=== PATIENT | male | born 2000 | race Caucasian/White ===

== ENCOUNTER 2020-01-19 16:07 | Emergency (ER) | payer SELFPAY ==
[2020-01-19 16:32] VITALS: BP 127/79; PULSE 77; RESP 18; TEMP 36.5; O2SAT 99; BMI 20.6
--- NOTE | 2020-01-19 17:21 | W.ED.SKABFB ---
HPI - Skin/Abscess/Foreign Bdy General: Chief complaint: Skin/Abscess/Foreign Body Stated complaint: lump under armpit Time Seen by Provider: 01/19/20 17:17 Source: patient Mode of arrival: ambulatory Limitations: no limitations History of Present Illness: HPI narrative: 19-year-old male whose had a lump to his right armpit over the last 2 days. He states that he has had worsening pain along with tenderness to the area. He states he is became more red as well rates his pain a 7 out of 10 currently. He denies any other injuries. Associated symptoms: Deny chills, fever(s), nausea or vomiting Review of Systems Const: Denies: fever(s), chills, body aches or change in appetite Eyes: Denies: blurry vision or eye discomfort ENMT: Denies: throat pain or dental pain Card: Denies: chest pain Resp: Denies: dyspnea GI: Denies: abdominal pain, nausea, vomiting or diarrhea : Denies: dysuria Musc: Denies: neck pain or back pain Skin/Breast: Reports: erythema Neuro: Denies: headache(s) Psych: Denies: depression Fish/Lymph: Denies: easy bruising All/Imm: Denies: urticaria Physical Exam Const: COMMON NORMALS: no acute distress, patient oriented x3 and healthy appearing HENMT: COMMON NORMALS: normocephalic and atraumatic HEAD & SCALP: normocephalic and atraumatic Eye: COMMON NORMALS: Equal, round and reactive pupils present and EOMs intact bilaterally PUPIL: Yes Equal, round and reactive pupils present Neck/C-Spine: COMMON NORMALS: full ROM and supple Chest: COMMONS NORMALS: normal inspection of the chest and normal palpation of entire chest wall Resp: COMMON NORMALS: normal respiratory effort, No retractions, No use of accessory muscles and clear to auscultation bilaterally AUSCULTATION: clear to auscultation bilaterally Cardio: COMMON NORMALS: regular rate, regular rhythm and No murmurs present (Cardio) RATE: regular rate RHYTHM: regular rhythm GI: COMMON NORMALS: Normal to inspection, nondistended, normoactive bowel sounds present, Soft to palpation, non-tender and no masses PALPATION: Yes Soft to palpation Extremity: COMMON NORMALS: normal to inspection and full ROM NARRATIVE EXTREMITY EXAM: 3cm abscess to right axilla Neuro: COMMON NORMALS: patient oriented x3, moves all extremities and no focal motor deficits Psych: COMMON NORMALS: mental status grossly normal, Normal thought process present and cooperative THOUGHT PROCESS: Normal thought process present Skin: COMMON NORMALS: no rashes or lesions noted and no wounds GENERAL SKIN EXAM: no rashes or lesions noted Procedures Abscess I/D Site: upper extremity Side (if applicable): right Local Anesthetic: lidocaine 1% Amount of anesthesia used (mL): 10 Technique: incised with #11 blade Packing used?: none Complications: pain Course Vital Signs: Vital signs: Vital Signs Temperature 97.7 F 01/19/20 16:32 Pulse Rate 65 01/19/20 17:23 Respiratory Rate 18 01/19/20 17:23 Blood Pressure 119/67 01/19/20 17:23 Pulse Oximetry 99 01/19/20 17:23 MDM - Skin/Abscess/Foreign Bdy MDM Narrative: Medical decision making narrative: Patient presents with an sabecous cyst to his right armpit. Abscess was incised and drained patient is to take Bactrim. Patient is stable for discharge is return if worsening. Discharge Plan Discharge Patient Disposition: Home Clinical Impression: Sebaceous cyst Condition: Stable Prescriptions: New Bactrim DS 800-160 mg tablet 1 tab PO BID 10 Days Qty: 20 RF: 0 Bactrim DS 800-160 mg tablet 1 tab PO BID 10 Days Qty: 20 RF: 0 [place] 5-325 mg tablet 1 tab PO Q6H PRN (Reason: pain) Qty: 14 RF: 0 Discharge Orders: Discharge Order (Routine); Ordered 01/19/20 Ordered By: Nathalie Reed Discharge Diet: Advance as tolerated Discharge Activity: Resume usual activity Patient Instructions: Abscess (ED) Coding Level of Care Code ED Burr Grinder for [employer] Fwd Exam Comprehensive
[2020-01-19 17:23] VITALS: BP 119/67; PULSE 65; RESP 18; O2SAT 99
[2020-01-19 17:52] VITALS: BP 118/66; PULSE 67; RESP 18; O2SAT 99
[2020-01-19 18:04] VITALS: BP 118/72; PULSE 76; RESP 18; TEMP 37; O2SAT 97
--- NOTE | 2020-01-22 09:19 | DCPLANNER ---
gardening manager had message to schedule a follow up appointment for patient with dermatology. Zohaib saldana called the dermatology clinic, spoke with Jeromy. gardening manager gave clinic patients information, a follow up appointment was scheduled for Tuesday, February 18, 2020 at 3:[address] Cerrato. Clinic will call patient with appointment information.
--- NOTE | 2020-02-24 08:29 | DCPLANNER ---
Patient had follow up with dermatology - patient did attend follow up appointment.
== END 2020-01-19 18:06 | disposition home or self-care (01) ==
PROVIDERS: Emergency Provider Emergency Medicine
DX: L72.3 Sebaceous cyst (principal)
CPT/HCPCS: 10060; 12345; 99283

== ENCOUNTER → 2020-01-27 12:52 | Outpatient (BNVA) | payer SELFPAY | PROVIDERS: PCP Emergency Medicine; Referring Provider Emergency Medicine; Visit Provider Dermatology | DX: L72.3 Sebaceous cyst (principal); F17.210 Nicotine dependence, cigarettes, uncomplicated | CPT/HCPCS: 11900; 99203; J3301 ==

== ENCOUNTER → 2020-02-10 11:18 | Outpatient (BNVA) | payer SELFPAY | PROVIDERS: PCP Emergency Medicine; Visit Provider Dermatology | DX: L72.3 Sebaceous cyst (principal); L70.8 Other acne; L81.4 Other melanin hyperpigmentation; L81.2 Freckles; S90.869A Insect bite (nonvenomous), unspecified foot, initial encounter; X58.XXXA Exposure to other specified factors, initial encounter; L70.0 Acne vulgaris | CPT/HCPCS: 99213; 99214 ==

== ENCOUNTER 2023-02-22 19:34 | Emergency (ER) | payer MEDICAID, SELFPAY ==
[2023-02-22 20:02] VITALS: BP 150/78; PULSE 90; RESP 16; TEMP 36.6; O2SAT 100; BMI 21.2
--- NOTE | 2023-02-22 20:52 | W.ED.FALL ---
HPI - Fall General: Chief Complaint: Fall Stated Complaint: fell, back pain, sob Time Seen by Provider: 02/22/23 20:23 History of Present Illness: 22-year-old male patient comes in today for injury to the mid back. Patient reports he was chasing his one of his children through the house when he slipped and fell landing on his mid back. Patient denies any loss of consciousness. Patient reports some difficulty breathing taking a deep breath due to the pain between his shoulder blades. Patient appears nontoxic. Patient appears in moderate pain. No obvious deformity is noted. Review of Systems General: Reports: 10 or more systems reviewed and unremarkable except in HPI and below Musc: Reports: back pain PFS ED PFSH: Social History Smoking and tobacco status: current every day smoker cigarettes Alcohol intake: current Alcohol intake frequency: few times a month Physical Exam Const: COMMON NORMALS: alert HENMT: COMMON NORMALS: normocephalic HEAD & SCALP: normocephalic Neck/C-Spine: COMMON NORMALS: full ROM CERVICAL SPINE: No Cervical spine tenderness and No Paracervical muscle tenderness Chest: COMMONS NORMALS: normal palpation of entire chest wall Resp: COMMON NORMALS: normal respiratory effort and clear to auscultation bilaterally AUSCULTATION: clear to auscultation bilaterally Cardio: COMMON NORMALS: regular rate and regular rhythm RATE: regular rate RHYTHM: regular rhythm GI: COMMON NORMALS: Soft to palpation and non-tender PALPATION: Yes Soft to palpation Back/Pelvis: THORACIC SPINE/UPPER BACK: Yes normal to inspection, Yes thoracic spinal tenderness and Yes paraspinal muscle tenderness LUMBAR SPINE/LOWER BACK: No lumbar spinal tenderness and No paraspinal muscle tenderness Extremity: COMMON NORMALS: full ROM Neuro: SENSORIUM/ORIENTATION: Yes alert Skin: COMMON NORMALS: turgor normal GENERAL SKIN EXAM: turgor normal Course Vital Signs: Vital signs: Vital Signs Temperature 97.8 F 02/22/23 20:02 Pulse Rate 90 02/22/23 20:02 Respiratory Rate 16 02/22/23 20:02 Blood Pressure 150/78 02/22/23 20:02 Pulse Oximetry 100 02/22/23 20:02 Oxygen Delivery Me thod Room Air 02/22/23 20:02 MDM - Fall Medical Decision Making Patient comes in for evaluation of pain to the mid back after slipping and falling onto the ground. On exam patient appears nontoxic. Patient moves all extremities well. Patient has some tenderness of the mid thoracic spine. Abdomen is soft and nontender. No edema is noted in the extremities. Differential diagnosis includes pneumothorax, thoracic fracture, rib fracture, costochondritis, contusion. X-rays of the thoracic spine and chest were unremarkable. Reviewed exam with patient with recommendations for treatment for pain with medication and ice or heat. Patient reported understanding of care plan and need for follow-up or return to ER. Patient was stable and discharged home. XR interpretation done by ED provider, pending radiology final review Discharge Plan Discharge Patient Disposition: Home Clinical Impression: Acute back pain Qualifiers: Back pain location: thoracic back pain Back pain laterality: midline Qualified Code(s): M54.6 - Pain in thoracic spine Condition: Stable Prescriptions: New hydrocodone-acetaminophen 5-325 mg tablet 1 tab PO Q6H PRN (Reason: pain) Qty: 10 0RF celecoxib 200 mg capsule 200 mg PO BID PRN (Reason: pain) Qty: 20 0RF No Action triamcinolone acetonide 0.1 % ointment 1 applic TOPICAL BID Qty: 80 0RF Rx Instructions: Apply to affected areas on the feet and hands twice daily no more than 2 weeks/month. adapalene 0.3 % gel 1 applic TOPICAL DAILY Qty: 45 3RF Rx Instructions: Apply pea-sized amount to clean, dry face nightly clindamycin-benzoyl peroxide 1.2 %(1 % base) -5 % gel 1 applic TOPICAL DAILY Qty: 45 2RF Rx Instructions: Apply thin film to face chest and back every morning. May bleach clothes. [place] 5-325 mg tablet 1 tab PO Q6H PRN (Reason: pain) Qty: 14 0RF Discharge Orders: Discharge ED (Routine); Ordered 02/22/23 Ordered By: Branden Hall Discharge Diet: Usual diet Discharge Activity: Increase activity as tolerated Patient Instructions: Back Pain (ED), Opioid Safety, Pain Management Activity Restrictions/Additional Instructions: Activity as tolerated. Use ice or heat to help with pain. Use acetaminophen and celecoxib routinely to control pain. Use hydrocodone for severe pain. Follow-up with primary care in 1 week for recheck. Return to ER for new concerns. Stand Alone Forms: Work/School Release Coding Level of Care Code ED Chief Executive for Janie Mendoza
--- NOTE | 2023-02-22 20:55 | XRR_ITS ---
PROCEDURE INFORMATION: Exam: XR Thoracic Spine Exam date and time: 02/22/2023 9:07 PM Age: 22 years old Clinical indication: Pain in thoracic spine; Additional info: Fall injury, pain between shoulders TECHNIQUE: Imaging protocol: Radiologic exam of the thoracic spine. Views: 3 views. COMPARISON: CR XR chest 1V portable [id number] 02/22/2023 9:06 PM FINDINGS: Bones/joints: Normal. No acute fracture. Normal alignment. Soft tissues: Unremarkable. XR/XR thoracic spine 3V* [id number] IMPRESSION: No acute findings.
--- NOTE | 2023-02-22 20:55 | XRR_ITS ---
PROCEDURE INFORMATION: Exam: XR Chest Exam date and time: 02/22/2023 9:06 PM Age: 22 years old Clinical indication: Dyspnea; Additional info: Fall injury, dyspnea TECHNIQUE: Imaging protocol: Radiologic exam of the chest. Views: 1 view. COMPARISON: No relevant prior studies available. FINDINGS: Lungs: Unremarkable. No consolidation. Pleural spaces: Unremarkable. No pleural effusion. No pneumothorax. Heart/Mediastinum: Unremarkable. No cardiomegaly. Bones/joints: Unremarkable. XR/XR chest 1V portable [id number] IMPRESSION: No acute findings.
[2023-02-22] MEDS: HYDROcodone-acetaminophen 7.5-325 mg Tablet 1 TAB PO (21:14)
[2023-02-22 21:51] VITALS: BP 141/84; PULSE 78; RESP 18; O2SAT 98
== END 2023-02-22 21:52 | disposition home or self-care (01) ==
PROVIDERS: Emergency Provider Nurse Practitioner Family
DX: M54.6 Pain in thoracic spine (principal); F17.210 Nicotine dependence, cigarettes, uncomplicated
CPT/HCPCS: 71045; 72072; 99284; J1885

== ENCOUNTER 2023-03-08 07:21 | Emergency (ER) | payer MEDICAID, SELFPAY ==
[2023-03-08 07:25] VITALS: BP 149/82; PULSE 85; RESP 18; TEMP 36.4; O2SAT 100
--- NOTE | 2023-03-08 07:29 | ED_ITS ---
HPI - Dental/Oral General: Chief complaint: Dental/Oral Stated complaint: left side jaw pain Time Seen by Provider: 03/08/23 07:23 Source: patient Mode of arrival: ambulatory Limitations: no limitations History of Present Illness: 22-year-old male states been having left lower tooth and jaw pain over the last 3 days. States got worse throughout the night last night states pain is currently 5 out of 10 denies any difficulty swallowing states it seems to radiate into his left ear denies any fevers Associated symptoms: Denies fever(s) Review of Systems Const: Denies: fever(s), chills, body aches or change in appetite ENMT: Reports: dental pain; Denies: throat pain Card: Denies: chest pain Resp: Denies: dyspnea GI: Denies: abdominal pain, nausea, vomiting or diarrhea : Denies: dysuria Musc: Denies: neck pain or back pain Skin/Breast: Denies: rash Neuro: Denies: headache(s) PFSH ED PFSH: Social History Smoking and tobacco status: current every day smoker cigarettes Alcohol intake: current Alcohol intake frequency: few times a month Physical Exam Const: COMMON NORMALS: no acute distress and patient oriented x3 HENMT: COMMON NORMALS: normocephalic and atraumatic HEAD & SCALP: normocephalic and atraumatic TYMPANIC MEMBRANE: TM normal on the left OTHER: Poor dentition with dental caries to left lower molar tenderness to touch no abscess no trismus Eye: COMMON NORMALS: conjunctivae normal CONJUNCTIVA: Yes conjunctivae normal Neck/C-Spine: COMMON NORMALS: full ROM and no lymphadenopathy Chest: COMMONS NORMALS: normal inspection of the chest Resp: COMMON NORMALS: normal respiratory effort Extremity: COMMON NORMALS: normal to inspection Neuro: COMMON NORMALS: patient oriented x3 Psych: COMMON NORMALS: mental status grossly normal Skin: COMMON NORMALS: no rashes or lesions noted GENERAL SKIN EXAM: no rashes or lesions noted Course Vital Signs: Vital signs: Vital Signs Temperature 97.5 F L 03/08/23 07:25 Pulse Rate 85 03/08/23 07:25 Respiratory Rate 18 03/08/23 07:25 Blood Pressure 149/82 03/08/23 07:25 Pulse Oximetry 100 03/08/23 07:[address] thod Room Air 03/08/23 07:25 MDM - Dental/Oral Medical Decision Making Patient presents here with dental pain we will start him on antibiotics he needs to follow-up with a dentist he has no abscess or trismus return if worsening Medical Records I reviewed the patient's medical records. No radiology studies performed this visit Discharge Plan Discharge Patient Disposition: Home Clinical Impression: Toothache Condition: Stable Prescriptions: New cephalexin 500 mg capsule 500 mg PO TID 7 Days Qty: 21 0RF Naprosyn 500 mg tablet 500 mg PO BID PRN (Reason: pain) Qty: 20 0RF No Action triamcinolone acetonide 0.1 % ointment 1 applic TOPICAL BID Qty: 80 0RF Rx Instructions: Apply to affected areas on the feet and hands twice daily no more than 2 weeks/month. adapalene 0.3 % gel 1 applic TOPICAL DAILY Qty: 45 3RF Rx Instructions: Apply pea-sized amount to clean, dry face nightly clindamycin-benzoyl peroxide 1.2 %(1 % base) -5 % gel 1 applic TOPICAL DAILY Qty: 45 2RF Rx Instructions: Apply thin film to face chest and back every morning. May bleach clothes. [place] 5-325 mg tablet 1 tab PO Q6H PRN (Reason: pain) Qty: 14 0RF hydrocodone-acetaminophen 5-325 mg tablet 1 tab PO Q6H PRN (Reason: pain) Qty: 10 0RF celecoxib 200 mg capsule 200 mg PO BID PRN (Reason: pain) Qty: 20 0RF Discharge Orders: Discharge ED (Routine); Ordered 03/08/23 Ordered By: Nathalie Reed Discharge Diet: Advance as tolerated Discharge Activity: Resume usual activity Patient Instructions: Toothache (ED) Coding Level of Care Code ED Branch Banker for Janie Mendoza
[2023-03-08] MEDS: HYDROcodone-acetaminophen 5-325 mg Tablet 1 TAB PO (07:41)
== END 2023-03-08 07:45 | disposition home or self-care (01) ==
PROVIDERS: Emergency Provider Emergency Medicine
DX: K08.89 Other specified disorders of teeth and supporting structures (principal); F17.210 Nicotine dependence, cigarettes, uncomplicated
CPT/HCPCS: 99283

== ENCOUNTER 2023-04-07 05:38 | Emergency (ER) | payer MEDICAID, SELFPAY ==
[2023-04-07 05:40] VITALS: BP 151/90; PULSE 77; RESP 16; TEMP 36.6; O2SAT 98
--- NOTE | 2023-04-07 05:50 | ED_ITS ---
HPI - Abdominal Pain General: Chief Complaint: Abdominal Pain Stated Complaint: n/v Time Seen by Provider: 04/07/23 05:45 Source: patient Mode of arrival: ambulatory History of Present Illness: 22-year-old male presents emergency room planing nausea vomiting for the last 2 days feels like he cannot keep anything down. Diffuse abdominal pain denies hematochezia or melena, no dysuria urgency or frequency. He has had a history of kidney stones he says it does not feel like he has felt with his previous stones. MD elicited complaint: abdominal pain Pertinent past history: kidney stones Onset (ago): day(s) (2) Pain Consistency: constant Location: Diffuse Quality: cramping Exacerbating factors: nothing Relieving factors: nothing Associated Symptoms: Reports GI cramping; Denies anorexia, belching, bloating, change in bowel habits, change in stool character, chills, coffee ground emesis, constipation, diarrhea, dyspepsia, dysuria, excessive flatus, fever(s), heartburn, hematochezia, hematuria, hematemesis, fecal incontinence, loose stools, melena, nausea, poor appetite, syncope and vomiting Review of Systems Const: Denies: fever(s) or chills Card: Denies: chest pain or syncope Resp: Denies: dyspnea GI: Reports: GI cramping; Denies: abdominal pain, nausea, vomiting, hematemesis, coffee ground emesis, heartburn, diarrhea, constipation, bloating, belching, excessive flatus, fecal incontinence, change in bowel habits, change in stool character, hematochezia or melena : Denies: dysuria, urinary frequency, urinary urgency or hematuria Musc: Denies: neck pain or back pain Skin/Breast: Denies: rash PFSH ED PFSH: Social History Smoking and tobacco/nicotine status: current every day tobacco/nicotine user mario anthony Alcohol intake: current Alcohol intake frequency: few times a month Physical Exam Const: GENERAL APPEARANCE: cooperative and comfortable ORIEN TATION/CONSCIOUSNESS: Yes awake, Yes oriented to person, Yes oriented to place and Yes oriented to time HENMT: COMMON NORMALS: normocephalic, atraumatic and hearing grossly normal bilaterally HEAD & SCALP: normocephalic and atraumatic Resp: COMMON NORMALS: normal respiratory effort, No retractions, No use of accessory muscles and clear to auscultation bilaterally AUSCULTATION: clear to auscultation bilaterally Cardio: COMMON NORMALS: regular rate, regular rhythm and No murmurs present (Cardio) RATE: regular rate RHYTHM: regular rhythm GI: COMMON NORMALS: No hepatosplenomegaly present AUSCULTATION: Yes normoactive bowel sounds PALPATION: Yes Tenderness to palpation present (GI) (Diffuse nonspecific), No Guarding due to palpation present (GI) and Yes No hepatosplenomegaly present Extremity: COMMON NORMALS: normal to inspection, capillary refill normal, no clubbing, cyanosis or edema, no calf tenderness and no pedal edema Neuro: SENSORIUM/ORIENTATION: Yes oriented to person, Yes oriented to place and Yes oriented to time Skin: COMMON NORMALS: no rashes or lesions noted GENERAL SKIN EXAM: no rashes or lesions noted Course Vital Signs: Vital signs: Vital Signs Temperature 97.8 F 04/07/23 05:40 Pulse Rate 77 04/07/23 05:40 Respiratory Rate 16 04/07/23 05:40 Blood Pressure 151/90 04/07/23 05:40 Pulse Oximetry 98 04/07/23 05:40 MDM - Abdominal Pain Medical Decision Making Labs and imaging reviewed patient does have some leukocytosis CT does not show any acute abnormalities reviewed and discussed with Dr. Wilson. Nausea vomiting has improved he still some abdominal cramping. He has received 2 L of fluid. I think this is due to his cannabinoid use. We will discharge patient home olanzapine and Ativan to use as needed. Clear liquid diet for 24 to 48 hours and advance as tolerated. Medical Records I reviewed the patient's medical records. Lab Data I reviewed the patient's lab results. 04/07/23 06:00 04/07/23 06:00 Labs/Radiology: Laboratory Results WBC 19.52 10^3/uL (3.29-11.43) H 04/07/23 06:00 RBC 5.18 10^6/uL (3.85-5.65) 04/07/23 06:00 Hgb 16.40 g/dL (11.27-16.99) 04/07/23 06:00 Hct 47.7 % (37-53) 04/07/23 06:00 MCV 92.1 fl (82-101) 04/07/23 06:00 MCH 31.7 pg (27-33) 04/07/23 06:00 MCHC 34.4 g/dL (30-55) 04/07/23 06:00 RDW 12.3 % (12.1-15.1) 04/07/23 06:00 Plt Count 201 10^3/cmm (157-399) 04/07/23 06:00 MPV 11.2 fL (7.4-10.4) H 04/07/23 06:00 Neut % (Auto) 86.7 % 04/07/23 06:00 Lymph % (Auto) 6.4 % 04/07/23 06:00 [place] % (Auto) 5.6 % 04/07/23 06:00 Eos % (Auto) 0.6 % 04/07/23 06:00 Baso % (Auto) 0.3 % 04/07/23 06:00 Neut # (Auto) 16.96 10^3/uL (1.8-7.7) H 04/07/23 06:00 Lymph # (Auto) 1.2 10^3/uL (0.8-4.8) 04/07/23 06:00 [place] # (Auto) 1.1 10^3/uL (0.2-0.9) H 04/07/23 06:00 Eos # (Auto) 0.1 10^3/uL (0.0-0.8) 04/07/23 06:00 Baso # (Auto) 0.1 10^3/uL (0.0-0.1) 04/07/23 06:00 Nucleated RBC % (auto) 0 % 04/07/23 06:00 Nucleated RBCs # 0.0 /100WBC 04/07/23 06:00 Sodium 140 mmol/L (136-145) 04/07/23 06:00 Potassium 3.8 mmol/L (3.5-5.1) 04/07/23 06:00 Chloride 103 mmol/L (98-107) 04/07/23 06:00 Carbon Dioxide 25 mmol/L (22-29) 04/07/23 06:00 Anion Gap 15.8 (5-19) 04/07/23 06:00 BUN 11 mg/dL (6-20) 04/07/23 06:00 Creatinine 0.9 mg/dL (0.7-1.2) 04/07/23 06:00 GFR Calculation 103.7 mL/min (90-130) 04/07/23 06:00 Glucose 111 mg/dL (65-115) 04/07/23 06:00 Calculated Osmolality 290 mOsm/kg (285-295) 04/07/23 06:00 Calcium 9.7 mg/dL (8.5-10.5) 04/07/23 06:00 Total Bilirubin 0.7 mg/dL (0.15-1.2) 04/07/23 06:00 AST 20 U/L (0-40) 04/07/23 06:00 ALT 19 U/L (0-41) 04/07/23 06:00 Alkaline Phosphatase 84 U/L (40-130) 04/07/23 06:00 Total Protein 7.7 g/dL (6.6-8.7) 04/07/23 06:00 Albumin 4.7 g/dL (3.5-5.2) 04/07/23 06:00 Globulin 3.0 g/dL (1.3-4.6) 04/07/23 06:00 Lipase 29 U/L (13-60) 04/07/23 06:00 Urine Color Yellow (Yellow) 04/07/23 06:13 Urine Appearance Sl hazy (CLEAR) A 04/07/23 06:13 Urine pH 6.5 (5-7) 04/07/23 06:13 Ur Specific [place] 1.020 (1.005-1.030) 04/07/23 06:13 Urine Protein Neg (Negative) 04/07/23 06:13 Urine Glucose (UA) Norm (Normal) 04/07/23 06:13 Urine Ketones Negative (Negative) 04/07/23 06:13 Urine Blood Neg (Negative) 04/07/23 06:13 Urine Nitrate Negative (Negative) 04/07/23 06:13 Urine Bilirubin Neg (Negative) 04/07/23 06:13 Urine Urobilinogen Norm mg/dL (Negative) 04/07/23 06:13 Ur Leukocyte Esterase Negative (Negative) 04/07/23 06:13 Urine RBC None /hpf (0-2) 04/07/23 06:13 Urine WBC None /hpf (0-5) 04/07/23 06:13 Ur Squamous Epith Cells None /hpf (0-5) 04/07/23 06:13 Amorphous Sediment 2+ /hpf 04/07/23 06:13 Urine Bacteria Trace /hpf (NONE) 04/07/23 06:13 Urine Mucus 2+ /hpf 04/07/23 06:13 All radiology interpretation(s) finalized by discharge Discharge Plan Discharge Patient Disposition: Home Clinical Impression: Cannabinoid hyperemesis syndrome Condition: Stable Prescriptions: New olanzapine 10 mg tablet,disintegrating 10 mg PO Q8H PRN (Reason: nausea and vomiting) Qty: 15 0RF Ativan 2 mg tablet 2 mg buccal Q6H PRN (Reason: nausea and vomiting) Qty: 15 0RF Discharge Orders: Discharge ED (Routine); Ordered 04/07/23 Ordered By: Puneet Reyes Discharge Diet: Clear Liquid Discharge Activity: Increase activity as tolerated Patient Instructions: Clear Liquid Diet (ED), Opioid Safety, Pain Management Activity Restrictions/Additional Instructions: Thank you for choosing [facility] for your healthcare needs today. Please realize this is an emergency room and that we are providing you with a medical screening exam and this may not be complete and all inclusive of all the testing and or work up that you may need to determine your ailment or severity of your illness. It is very important that you follow up as instructed or that you return to the Emergency Department should you have concerns or if your condition changes or worsens in any way. Coding Level of Care Code ED Claims Account Manager for Janie Mendoza
[2023-04-07 06:07] LABS: Basophils # 0.1 10^3/uL (0.0-0.1); Basophils % 0.3 %; Eosinophils # 0.1 10^3/uL (0.0-0.8); Eosinophils % 0.6 %; Hematocrit 47.7 % (37-53); Lymphocytes # 1.2 10^3/uL (0.8-4.8); Lymphocytes % 6.4 %; Mean Corpuscular HGB Conc 34.4 g/dL (30-55); Mean Corpuscular Hemoglobin 31.7 pg (27-33); Mean Corpuscular Volume 92.1 fl (82-101); Mean Platelet Volume 11.2 fL (7.4-10.4); Monocytes # 1.1 10^3/uL (0.2-0.9); Monocytes % 5.6 %; Neutrophils # 16.96 10^3/uL (1.8-7.7); Neutrophils % 86.7 %; Nucleated Red Blood Cells % 0 %; Platelet Count 201 10^3/cmm (157-399); Red Blood Count 5.18 10^6/uL (3.85-5.65); Red Cell Distribution Width 12.3 % (12.1-15.1); White Blood Count 19.52 10^3/uL (3.29-11.43)
[2023-04-07] MEDS: promethazine 25 mg/mL SDV 1 mL IM (06:09)
[2023-04-07] MEDS: sodium chloride 0.9% 1,000 ML 999 ML IV ×2 (06:09→06:34)
[2023-04-07 06:22] LABS: Alanine Aminotransferase 19 U/L (0-41); Albumin Level 4.7 g/dL (3.5-5.2); Alkaline Phosphatase 84 U/L (40-130); Anion Gap 15.8 (5-19); Aspartate Amino Transferase 20 U/L (0-40); Blood Urea Nitrogen 11 mg/dL (6-20); Calcium 9.7 mg/dL (8.5-10.5); Carbon Dioxide 25 mmol/L (22-29); Chloride 103 mmol/L (98-107); Creatinine Clr Calc Pharmacy 143.5042; Glomerular Filtration Rate 103.7 mL/min (90-130); Glucose 111 mg/dL (65-115); Lipase 29 U/L (13-60); Osmolality Calculated 290 mOsm/kg (285-295); Potassium 3.8 mmol/L (3.5-5.1); Sodium 140 mmol/L (136-145); Total Bilirubin 0.7 mg/dL (0.15-1.2); Total Protein 7.7 g/dL (6.6-8.7)
[2023-04-07 06:23] LABS: Slide Review Slide Review Perform
[2023-04-07 06:26] LABS: Urine Appearance SL Hazy (CLEAR); Urine Color Yellow (Yellow); pH Urine 6.5 (5-7)
[2023-04-07 06:28] LABS: Bilirubin Urine Neg (Negative); Blood Urine Neg (Negative); Glucose Urine UA Norm (Normal); Ketones Urine Negative (Negative); Leukocyte Esterase Urine Negative (Negative); Nitrate Urine Negative (Negative); Protein Urine Neg (Negative); Urobilinogen Urine Norm (Negative)
[2023-04-07 06:29] LABS: Add Urine Microscopic? YES
[2023-04-07 06:30] LABS: Add Urine Culture? No; Amorphous Sediment Urine 2+ /hpf; Bacteria Urine TRACE /hpf; Mucus Urine 2+ /hpf
--- NOTE | 2023-04-07 06:37 | CT_ITS ---
WS: [id number] CT ABDOMEN AND PELVIS WITH CONTRAST HISTORY: abd pain TECHNIQUE: Imaging performed of the abdomen and pelvis with IV contrast. Single phase imaging of the abdomen. Coronal and sagittal reformats are submitted. All CT scans at [facility] use at [address] one of these dose optimization techniques: automated exposure control; mA and/or kV adjustment per patient size (includes targeted exams where dose is matched to clinical indication); or iterative re construction. IV CONTRAST: Omnipaque 350; 100 mL IV. Oral contrast: No DLP: 441.53 mGy.cm COMPARISON: None available. Lower thorax: Lung bases are clear. Heart is normal size. No hiatal hernia. Liver/biliary system: Normal size with no intrahepatic dilatation. Gallbladder: Normal. No gallstones or wall thickening. No pericholecystic fluid. Pancreas: Normal size pancreas and pancreatic duct. No adjacent inflammation. Spleen: Normal size spleen. No mass or infarct. Adrenal glands: Normal. Right kidney: Normal. Left kidney: Normal. Aorta: Normal. Lymphadenopathy: None. Free fluid: None. GI tract: The appendix is normal. Diameter is 5 mm. There is still air within the appendiceal lumen. No significant adjacent inflammation. There may be very slight increased fluid in the small bowel. No ischemic changes or obstruction. Abdominal wall: Unremarkable abdominal wall. No hernia. Pelvis: No free fluid or adenopathy within the pelvis. Bones: Unremarkable. IMPRESSION: 1. Normal appendix. At this time there is no evidence for appendicitis. 2. Very slight increased amount of fluid in the small bowel may be from mild gastroenteritis. No obs tructive pattern. 3. No renal obstruction or calcification. Notified Puneet Reyes DO at 04/07/2023 7:38 AM.
[2023-04-07 08:42] VITALS: PULSE 79; O2SAT 97
[2023-04-07] MEDS: morphine 4 mg/mL SDV 1 mL IVP (08:42)
== END 2023-04-07 08:43 | disposition home or self-care (01) ==
PROVIDERS: Emergency Provider Family Medicine
DX: R11.2 Nausea with vomiting, unspecified (principal); F12.90 Cannabis use, unspecified, uncomplicated; F17.210 Nicotine dependence, cigarettes, uncomplicated
CPT/HCPCS: 74177; 80053; 81001; 83690; 85025; 96372; 96374; 99285; J2270; J2550; J7030; Q9967

== ENCOUNTER 2023-05-25 23:49 | Emergency (ER) | payer MEDICAID, SELFPAY ==
[2023-05-25 23:54] VITALS: BP 128/83; PULSE 104; RESP 20; TEMP 36.5; O2SAT 99; BMI 21.8
[2023-05-26 00:50] VITALS: RESP 18
[2023-05-26] MEDS: haloperidol inj 5 mg/mL INJ 1 mL 2 MG IM (00:50)
[2023-05-26] MEDS: morphine 4 mg/mL SDV 1 mL IVP (00:50)
[2023-05-26] MEDS: metoclopramide 5 mg/mL SDV 2 mL 10 MG IVP (00:50)
[2023-05-26] MEDS: sodium chloride 0.9% 1,000 ML 999 ML IV (00:50)
[2023-05-26 00:52] LABS: Basophils # 0.1 10^3/uL (0.0-0.1); Basophils % 0.5 %; Eosinophils # 0.1 10^3/uL (0.0-0.8); Eosinophils % 0.5 %; Hematocrit 49.9 % (37-53); Lymphocytes # 2.2 10^3/uL (0.8-4.8); Lymphocytes % 17.3 %; Mean Corpuscular HGB Conc 34.5 g/dL (30-55); Mean Corpuscular Hemoglobin 31.8 pg (27-33); Mean Corpuscular Volume 92.2 fl (82-101); Mean Platelet Volume 12.5 fL (7.4-10.4); Monocytes % 7.9 %; Neutrophils # 9.15 10^3/uL (1.8-7.7); Neutrophils % 73.6 %; Nucleated Red Blood Cells % 0 %; Platelet Count 193 10^3/cmm (157-399); Red Blood Count 5.41 10^6/uL (3.85-5.65); Red Cell Distribution Width 12.7 % (12.1-15.1); White Blood Count 12.43 10^3/uL (3.29-11.43)
[2023-05-26 01:00] VITALS: BP 139/100; PULSE 106; RESP 18; O2SAT 99
[2023-05-26 01:03] LABS: Alanine Aminotransferase 26 U/L (0-41); Albumin Level 4.9 g/dL (3.5-5.2); Alkaline Phosphatase 84 U/L (40-130); Anion Gap 13.7 (5-19); Aspartate Amino Transferase 24 U/L (0-40); Blood Urea Nitrogen 13 mg/dL (6-20); Calcium 10.2 mg/dL (8.5-10.5); Carbon Dioxide 26 mmol/L (22-29); Chloride 102 mmol/L (98-107); Globulin 3.1 g/dL (1.3-4.6); Glomerular Filtration Rate 91.8 mL/min (90-130); Glucose 88 mg/dL (65-115); Lipase 24 U/L (13-60); Osmolality Calculated 286 mOsm/kg (285-295); Potassium 3.7 mmol/L (3.5-5.1); Sodium 138 mmol/L (136-145); Total Bilirubin 0.8 mg/dL (0.15-1.2)
[2023-05-26 01:24] LABS: Add Urine Microscopic? NO; Charge for UA Resulting for Rev
[2023-05-26 01:31] LABS: Bilirubin Urine 1+ (Negative); Blood Urine Neg (Negative); Glucose Urine UA Norm (Normal); Ketones Urine Negative (Negative); Leukocyte Esterase Urine Negative (Negative); Nitrate Urine Negative (Negative); Protein Urine Neg (Negative); Specific Gravity, Urine 1.015 (1.005-1.030); Urine Appearance Clear (CLEAR); Urine Color Dark Yellow (Yellow); Urobilinogen Urine 1 mg/dL (Negative); pH Urine 7 (5-7)
--- NOTE | 2023-05-26 01:35 | ED_ITS ---
HPI - Nausea/Vomiting/Diarrhea 2 General: Chief complaint: Nausea/Vomiting/Diarrhea Stated complaint: sharp pain in adb Time Seen by Provider: 05/26/23 00:06 History of Present Illness: 22-year-old male presents [facility] room with nausea, vomiting, diarrhea and diffuse abdominal pain since yesterday.. Patient denies vomiting blood, coughing up blood or bloody stool. No known sick contact recent foreign travel. Describes the pain as cramping sensation mostly diffusely without any focal tenderness. No dysuria, hematuria or urine frequency. No flank pain. Associated nausea: Yes Associated symtoms: Reports nausea; Denies bloating, fatigue, fecal incontinence or malaise Review of Systems 2 General: Reports: 10 or more systems reviewed and unremarkable except in HPI and below Const: Denies: fever(s), chills, body aches, change in appetite, change in weight, fatigue, malaise or night sweats Resp: Denies: dyspnea or productive cough GI: Reports: abdominal pain, nausea, vomiting and diarrhea; Denies: heartburn, early satiety, constipation, bloating, GI cramping, belching, excessive flatus, fecal incontinence, change in bowel habits or pain on defecation PFSH ED 2 PFSH: Social History Smoking and tobacco/nicotine status: current every day tobacco/nicotine user cigarettes Alcohol intake: current Alcohol intake frequency: few times a month Physical Exam 2 Const: COMMON NORMALS: no acute distress, average body habitus, patient oriented x3, no limitations, healthy appearing, alert and well nourished HENMT: COMMON NORMALS: normocephalic, atraumatic, hearing grossly normal bilaterally, external ears normal, EAC's normal, TM's normal bilaterally, Normal external nose present, Normal nasal mucous membranes and turbinates present, moist oral mucous membranes, oropharynx normal, dentition normal and gingiva normal HEAD & SCALP: normocephalic and atraumatic NOSE: Normal external nose present and Normal nasal mucous membranes and turbinates present E XTERNAL EAR: Yes external ears normal EXTERNAL AUDITORY CANAL: EAC's normal TYMPANIC MEMBRANE: TM's normal bilaterally Neck/C-Spine: COMMON NORMALS: full ROM, no lymphadenopathy, supple, no meningeal signs, no JVD, Thyroid normal and No carotid bruits THYROID: T hyroid normal Resp: COMMON NORMALS: normal respiratory effort, No retractions, No use of accessory muscles, clear to auscultation bilaterally and percussion normal A USCULTATION: clear to auscultation bilaterally PERCUSSION: percussion normal Cardio: COMMON NORMALS: no JVD GI: COMMON NORMALS: Soft to palpation and No hepatosplenomegaly present I NSPECTION: Yes normal to inspection AUSCULTATION: Yes normoactive bowel sounds PALPATION: Yes Soft to palpation, Yes Tenderness to palpation present (GI) Details: LLQ, RLQ, LUQ and RUQ, No Rigid due to palpation, Yes No hepatosplenomegaly present, No Hepatosplenomegaly present, No Hepatomegaly present, No Splenomegaly present, No Hernia present, No Pulsatile mass present and No Ascites present : COMMON NORMALS: Yes no CVA tenderness BLADDER/KIDNEY EXAM: Yes no CVA tenderness Back/Pelvis: COMMON NORMALS: no CVA tenderness, thoracic and lumbar spine normal to inspection, no thoracic nor lumbar tenderness, thoraco-lumbar ROM normal and straight leg raise negative bilaterally Neuro: COMMON NORMALS: patient oriented x3 SENSORIUM/ORIENTATION: Yes alert MENINGEAL SIGNS: Yes no meningeal signs Course 2 Reevaluation(s): Reevaluation #1: Upper assessment patient was able to drink oral fluids without vomiting. Patient reveals improvement with his condition at this time. Again patient was told to return to emergency room if his pain becomes localized to the right lower quadrant or have increased nausea and vomiting. Vital Signs: Vital signs: Vital Signs Temperature 97.7 F 05/25/23 23:54 Pulse Rate 62 05/26/23 02:23 Respiratory Rate 18 05/26/23 02:23 Blood Pressure 135/88 05/26/23 02:23 Pulse Oximetry 96 05/26/23 02:23 Oxygen Delivery Me thod Room Air 05/26/23 01:45 MDM - Nausea/Vomiting/Diarrhea Medical Decision Making Patient made comfortable emergency room patient was given IV fluid IV pain medication and nausea medication. She was given IV pain medication as well. Patient extensive workup with CBC, CMP, lipase and a UA. Given the fact the patient is having diarrhea and diffuse abdominal pain CT was considered but not done at this time patient was told to return to emergency room if symptoms persist or worsen within the next 24 hours and pain is localized to the right side. Patient agreed with the plan Differential Diagnosis Likely traveler's diarrhea, food poisoning, gastroenteritis, clostridium difficile infection, drug-induced nausea and vomiting and dehydration Lab Data 05/26/23 00:20 05/26/23 00:20 Laboratory Results WBC 12.43 10^3/uL (3.29-11.43) H 05/26/23 00:20 RBC 5.41 10^6/uL (3.85-5.65) 05/26/23 00:20 Hgb 17.20 g/dL (11.27-16.99) H 05/26/23 00:20 Hct 49.9 % (37-53) 05/26/23 00:20 MCV 92.2 fl (82-101) 05/26/23 00:20 MCH 31.8 pg (27-33) 05/26/23 00:20 MCHC 34.5 g/dL (30-55) 05/26/23 00:20 RDW 12.7 % (12.1-15.1) 05/26/23 00:20 Plt Count 193 10^3/cmm (157-399) 05/26/23 00:20 MPV 12.5 fL (7.4-10.4) H 05/26/23 00:20 Neut % (Auto) 73.6 % 05/26/23 00:20 Lymph % (Auto) 17.3 % 05/26/23 00:20 [place] % (Auto) 7.9 % 05/26/23 00:20 Eos % (Auto) 0.5 % 05/26/23 00:20 Baso % (Auto) 0.5 % 05/26/23 00:20 Neut # (Auto) 9.15 10^3/uL (1.8-7.7) H 05/26/23 00:20 Lymph # (Auto) 2.2 10^3/uL (0.8-4.8) 05/26/23 00:20 [place] # (Auto) 1.0 10^3/uL (0.2-0.9) H 05/26/23 00:20 Eos # (Auto) 0.1 10^3/uL (0.0-0.8) 05/26/23 00:20 Baso # (Auto) 0.1 10^3/uL (0.0-0.1) 05/26/23 00:20 Nucleated RBC % (auto) 0 % 05/26/23 00:20 Nucleated RBCs # 0.0 /100WBC 05/26/23 00:20 Sodium 138 mmol/L (136-145) 05/26/23 00:20 Potassium 3.7 mmol/L (3.5-5.1) 05/26/23 00:20 Chloride 102 mmol/L (98-107) 05/26/23 00:20 Carbon Dioxide 26 mmol/L (22-29) 05/26/23 00:20 Anion Gap 13.7 (5-19) 05/26/23 00:20 BUN 13 mg/dL (6-20) 05/26/23 00:20 Creatinine 1.0 mg/dL (0.7-1.2) 05/26/23 00:20 GFR Calculation 91.8 mL/min (90-130) 05/26/23 00:20 Glucose 88 mg/dL (65-115) 05/26/23 00:20 Calculated Osmolality 286 mOsm/kg (285-295) 05/26/23 00:20 Calcium 10.2 mg/dL (8.5-10.5) 05/26/23 00:20 Total Bilirubin 0.8 mg/dL (0.15-1.2) 05/26/23 00:20 AST 24 U/L (0-40) 05/26/23 00:20 ALT 26 U/L (0-41) 05/26/23 00:20 Alkaline Phosphatase 84 U/L (40-130) 05/26/23 00:20 Total Protein 8.0 g/dL (6.6-8.7) 05/26/23 00:20 Albumin 4.9 g/dL (3.5-5.2) 05/26/23 00:20 Globulin 3.1 g/dL (1.3-4.6) 05/26/23 00:20 Lipase 24 U/L (13-60) 05/26/23 00:20 Urine Color Dark yellow (Yellow) 05/26/23 01:16 Urine Appearance Clear (CLEAR) 05/26/23 01:16 Urine pH 7 (5-7) 05/26/23 01:16 Ur Specific [place] 1.015 (1.005-1.030) 05/26/23 01:16 Urine Protein Neg (Negative) 05/26/23 01:16 Urine Glucose (UA) Norm (Normal) 05/26/23 01:16 Urine Ketones Negative (Negative) 05/26/23 01:16 Urine Blood Neg (Negative) 05/26/23 01:16 Urine Nitrate Negative (Negative) 05/26/23 01:16 Urine Bilirubin 1+ (Negative) H 05/26/23 01:16 Urine Urobilinogen 1 mg/dL (Negative) H 05/26/23 01:16 Ur Leukocyte Esterase Negative (Negative) 05/26/23 01:16 No radiology studies performed this visit Discharge Plan Discharge Patient Disposition: Home Clinical Impression: Gastroenteritis, Nausea vomiting and diarrhea Condition: Stable Prescriptions: New promethazine 25 mg tablet 25 mg PO TID PRN (Reason: nausea and vomiting) Qty: 20 0RF No Action olanzapine 10 mg tablet,disintegrating 10 mg PO Q8H PRN (Reason: nausea and vomiting) Qty: 15 0RF Ativan 2 mg tablet 2 mg buccal Q6H PRN (Reason: nausea and vomiting) Qty: 15 0RF Discharge Orders: Discharge ED (Routine); Ordered 05/26/23 Ordered By: Richard Mccauley Patient Instructions: Opioid Safety, Pain Management Coding Level of Care Code ED Legal Archivist for Janie Mendoza
[2023-05-26] MEDS: diphenhydrAMINE 50 mg/mL SDV 1mL 25 MG IVP (01:44)
[2023-05-26 01:45] VITALS: BP 140/80; PULSE 90; RESP 18; O2SAT 98
[2023-05-26 02:23] VITALS: BP 135/88; PULSE 62; RESP 18; O2SAT 96
== END 2023-05-26 02:25 | disposition home or self-care (01) ==
PROVIDERS: Emergency Provider Family Medicine
DX: K52.9 Noninfective gastroenteritis and colitis, unspecified (principal); F17.210 Nicotine dependence, cigarettes, uncomplicated
CPT/HCPCS: 80053; 81003; 83690; 85025; 96372; 96374; 96375; 99284; J1200; J1630; J2270; J2765; J7030

== ENCOUNTER 2023-05-27 20:25 | Emergency (ER) | payer MEDICAID, SELFPAY ==
[2023-05-27 20:30] VITALS: BP 143/79; PULSE 92; RESP 16; TEMP 36.4; O2SAT 99
[2023-05-27 21:04] VITALS: PULSE 76; O2SAT 99
[2023-05-27 21:18] LABS: Basophils % 0.6 %; Eosinophils # 0.1 10^3/uL (0.0-0.8); Eosinophils % 0.7 %; Hematocrit 47.5 % (37-53); Lymphocytes # 2.4 10^3/uL (0.8-4.8); Mean Corpuscular HGB Conc 33.5 g/dL (30-55); Mean Corpuscular Hemoglobin 31.5 pg (27-33); Mean Corpuscular Volume 94.1 fl (82-101); Mean Platelet Volume 11.6 fL (7.4-10.4); Monocytes # 0.6 10^3/uL (0.2-0.9); Monocytes % 8.6 %; Neutrophils % 54.8 %; Nucleated Red Blood Cells % 0 %; Platelet Count 191 10^3/cmm (157-399); Red Blood Count 5.05 10^6/uL (3.85-5.65); Red Cell Distribution Width 12.5 % (12.1-15.1); White Blood Count 6.94 10^3/uL (3.29-11.43)
[2023-05-27 21:22] LABS: Add Urine Microscopic? NO; Charge for UA Resulting for Rev
--- NOTE | 2023-05-27 21:22 | USR_ITS ---
PROCEDURE INFORMATION: Exam: US Duplex Artery or Vein of the Abdominal and/or Reproductive Organs, Limited Liver Exam date and time: 05/27/2023 10:08 PM Clinical indication: Abdominal pain; Epigastric; Additional info: Ruq pain TECHNIQUE: Imaging protocol: Real-time duplex ultrasound scan of the arterial or venous flow with color Doppler flow and spectral waveform analysis with image documentation. Limited Duplex exam focused on the liver and portal venous system. Duplex exam was performed to evaluate for vascular conditions. COMPARISON: No relevant prior studies available. FINDINGS: Portal venous: Patent. Normal waveforms. Normal hepatopetal (towards the liver) flow. Hepatic artery: Not specifically interrogated. PROCEDURE INFORMATION: Exam: US Abdomen, Limited; Right Upper Quadrant Exam date and time: 05/27/2023 10:08 PM Age: 22 years old Clinical indication: Abdominal pain; Epigastric; Additional info: Ruq pain TECHNIQUE: Imaging protocol: Real time ultrasound of the abdomen with image documentation. Limited exam focused on the right upper quadrant. COMPARISON: CT abdomen pelvis w con* [id number] 04/07/2023 6:57 AM FINDINGS: Liver: Normal. No masses. Right lobe measures 13 cm. Gallbladder: Normal. No gallstones. There is no gallbladder wall thickening. Biliary ducts: Normal. No stones. No dilation. Visualized common duct measures up to 5 mm in diameter. Pancreas: Visualized pancreas is unremarkable. Right kidney: Normal. No mass. No hydronephrosis. Measures 11 cm in length. Aorta: Interrogated IVC and aorta demonstrate normal caliber. US/US gall bladder [id number] IMPRESSION: Unremarkable duplex of the portal vein. IMPRESSION: No acute findings.
--- NOTE | 2023-05-27 21:26 | ED_ITS ---
HPI - Abdominal Pain 2 General: Chief Complaint: Abdominal Pain Stated Complaint: abd pain Time Seen by Provider: 05/27/23 20:58 Source: patient Mode of arrival: ambulatory Limitations: no limitations History of Present Illness: 22-year-old male states has been having epigastric and right upper quadrant pain over the last 3 to 4 days. He states he is also been having foul-smelling burps and diarrhea denies any vomiting. Rates his pain a 4 out of 10 currently denies any fevers. Associated Symptoms: Reports diarrhea; Denies chills, dysuria, fever(s), nausea and vomiting Review of Systems 2 Const: Denies: fever(s), chills, body aches or change in appetite ENMT: Denies: throat pain or dental pain Card: Denies: chest pain Resp: Denies: dyspnea GI: Reports: abdominal pain and diarrhea; Denies: nausea or vomiting : Denies: dysuria Musc: Denies: neck pain or back pain Skin/Breast: Denies: rash Neuro: Denies: headache(s) Psych: Denies: depression Fish/Lymph: Denies: easy bruising All/Imm: Denies: urticaria PFSH ED 2 PFSH: Social History Smoking and tobacco/nicotine status: current every day tobacco/nicotine user cigarettes Alcohol intake: current Alcohol intake frequency: few times a month Physical Exam 2 Const: COMMON NORMALS: no acute distress, patient oriented x3 and healthy appearing HENMT: COMMON NORMALS: normocephalic and atraumatic HEAD & SCALP: n ormocephalic and atraumatic Neck/C-Spine: COMMON NORMALS: full ROM and supple Chest: COMMONS NORMALS: normal inspection of the chest Resp: COMMON NORMALS: normal respiratory effort Cardio: COMMON NORMALS: regular rate, regular rhythm and No murmurs present (Cardio) RATE: regular rate RHYTHM: regular rhythm GI: COMMON NORMALS: Normal to inspection, nondistended, normoactive bowel sounds present, Soft to palpation and no masses PALPATION: Yes Soft to palpation and Yes Tenderness to palpation present (GI) Details: RUQ Extremity: COMMON NORMALS: normal to inspection and full ROM Neuro: COMMON NORMALS: patient oriented x3, moves all extremities and no focal motor deficits Psych: COMMON NORMALS: mental status grossly normal, Normal thought process present and cooperative THOUGHT PROCESS: Normal thought process present Skin: COMMON NORMALS: no rashes or lesions noted and no wounds GENERAL SKIN EXAM: no rashes or lesions noted Course 2 Vital Signs: Vital signs: Vital Signs Temperature 97.5 F L 05/27/23 20:30 Pulse Rate 73 05/27/23 21:44 Respiratory Rate 16 05/27/23 20:30 Blood Pressure 130/81 05/27/23 21:44 Pulse Oximetry 99 05/27/23 21:44 Oxygen Delivery Me thod Room Air 05/27/23 21:04 MDM - Abdominal Pain Medical Decision Making Patient presents here with abdominal pain he is well-appearing here ultrasound of his gallbladder is normal blood works normal he is stable for discharge he is follow-up with PCP and return if worsening. Medical Records I reviewed the patient's medical records. Lab Data I reviewed the patient's lab results. 05/27/23 21:05 05/27/23 21:05 Labs/Radiology: Laboratory Results WBC 6.94 10^3/uL (3.29-11.43) 05/27/23 21:05 RBC 5.05 10^6/uL (3.85-5.65) 05/27/23 21:05 Hgb 15.90 g/dL (11.27-16.99) 05/27/23 21:05 Hct 47.5 % (37-53) 05/27/23 21:05 MCV 94.1 fl (82-101) 05/27/23 21:05 MCH 31.5 pg (27-33) 05/27/23 21:05 MCHC 33.5 g/dL (30-55) 05/27/23 21:05 RDW 12.5 % (12.1-15.1) 05/27/23 21:05 Plt Count 191 10^3/cmm (157-399) 05/27/23 21:05 MPV 11.6 fL (7.4-10.4) H 05/27/23 21:05 Neut % (Auto) 54.8 % 05/27/23 21:05 Lymph % (Auto) 35.0 % 05/27/23 21:05 [place] % (Auto) 8.6 % 05/27/23 21:05 Eos % (Auto) 0.7 % 12/30/23 21:05 Baso % (Auto) 0.6 % 05/27/23 21:05 Neut # (Auto) 3.80 10^3/uL (1.8-7.7) 05/27/23 21:05 Lymph # (Auto) 2.4 10^3/uL (0.8-4.8) 05/27/23 21:05 [place] # (Auto) 0.6 10^3/uL (0.2-0.9) 05/27/23 21:05 Eos # (Auto) 0.1 10^3/uL (0.0-0.8) 05/27/23 21:05 Baso # (Auto) 0.0 10^3/uL (0.0-0.1) 05/27/23 21:05 Nucleated RBC % (auto) 0 % 05/27/23 21:05 Nucleated RBCs # 0.0 /100WBC 05/27/23 21:05 Sodium 139 mmol/L (136-145) 05/27/23 21:05 Potassium 3.9 mmol/L (3.5-5.1) 05/27/23 21:05 Chloride 102 mmol/L (98-107) 05/27/23 21:05 Carbon Dioxide 27 mmol/L (22-29) 05/27/23 21:05 Anion Gap 13.9 (5-19) 05/27/23 21:05 BUN 10 mg/dL (6-20) 05/27/23 21:05 Creatinine 1.0 mg/dL (0.7-1.2) 05/27/23 21:05 GFR Calculation 91.8 mL/min (90-130) 05/27/23 21:05 Glucose 93 mg/dL (65-115) 05/27/23 21:05 Calculated Osmolality 287 mOsm/kg (285-295) 05/27/23 21:05 Calcium 10.4 mg/dL (8.5-10.5) 05/27/23 21:05 Total Bilirubin 0.4 mg/dL (0.15-1.2) 05/27/23 21:05 AST 29 U/L (0-40) 05/27/23 21:05 ALT 25 U/L (0-41) 05/27/23 21:05 Alkaline Phosphatase 82 U/L (40-130) 05/27/23 21:05 Total Protein 8.4 g/dL (6.6-8.7) 05/27/23 21:05 Albumin 4.8 g/dL (3.5-5.2) 05/27/23 21:05 Globulin 3.6 g/dL (1.3-4.6) 05/27/23 21:05 Lipase 22 U/L (13-60) 05/27/23 21:05 Urine Color Yellow (Yellow) 05/27/23 21:19 Urine Appearance Clear (CLEAR) 05/27/23 21:19 Urine pH 7 (5-7) 05/27/23 21:19 Ur Specific [place] 1.015 (1.005-1.030) 05/27/23 21:19 Urine Protein Neg (Negative) 05/27/23 21:19 Urine Glucose (UA) Norm (Normal) 05/27/23 21:19 Urine Ketones Negative (Negative) 05/27/23 21:19 Urine Blood Neg (Negative) 05/27/23 21:19 Urine Nitrate Negative (Negative) 05/27/23 21:19 Urine Bilirubin Neg (Negative) 05/27/23 21:19 Urine Urobilinogen 1 mg/dL (Negative) H 05/27/23 21:19 Ur Leukocyte Esterase Negative (Negative) 05/27/23 21:19 All radiology interpretation(s) finalized by discharge Discharge Plan Discharge Patient Disposition: Home Clinical Impression: Abdominal pain Qualifiers: Abdominal location: generalized Qualified Code(s): R10.84 - Generalized abdominal pain Condition: Stable Prescriptions: New Protonix 40 mg tablet,delayed release (DR/EC) 40 mg PO DAILY Qty: 60 0RF No Action olanzapine 10 mg tablet,disintegrating 10 mg PO Q8H PRN (Reason: nausea and vomiting) Qty: 15 0RF Ativan 2 mg tablet 2 mg buccal Q6H PRN (Reason: nausea and vomiting) Qty: 15 0RF promethazine 25 mg tablet 25 mg PO TID PRN (Reason: nausea and vomiting) Qty: 20 0RF Discharge Orders: Discharge ED (Routine); Ordered 05/27/23 Ordered By: Nathalie Reed Discharge Diet: Advance as tolerated Discharge Activity: Resume usual activity Patient Instructions: Abdominal Pain (ED) Coding Level of Care Code ED [place] Attorney for [facility]
[2023-05-27 21:29] LABS: Bilirubin Urine Neg (Negative); Blood Urine Neg (Negative); Glucose Urine UA Norm (Normal); Ketones Urine Negative (Negative); Leukocyte Esterase Urine Negative (Negative); Nitrate Urine Negative (Negative); Protein Urine Neg (Negative); Specific Gravity, Urine 1.015 (1.005-1.030); Urine Appearance Clear (CLEAR); Urine Color Yellow (Yellow); Urobilinogen Urine 1 mg/dL (Negative); pH Urine 7 (5-7)
[2023-05-27 21:38] LABS: Alanine Aminotransferase 25 U/L (0-41); Albumin Level 4.8 g/dL (3.5-5.2); Alkaline Phosphatase 82 U/L (40-130); Anion Gap 13.9 (5-19); Aspartate Amino Transferase 29 U/L (0-40); Blood Urea Nitrogen 10 mg/dL (6-20); Calcium 10.4 mg/dL (8.5-10.5); Carbon Dioxide 27 mmol/L (22-29); Chloride 102 mmol/L (98-107); Globulin 3.6 g/dL (1.3-4.6); Glomerular Filtration Rate 91.8 mL/min (90-130); Glucose 93 mg/dL (65-115); Lipase 22 U/L (13-60); Osmolality Calculated 287 mOsm/kg (285-295); Potassium 3.9 mmol/L (3.5-5.1); Sodium 139 mmol/L (136-145); Total Bilirubin 0.4 mg/dL (0.15-1.2); Total Protein 8.4 g/dL (6.6-8.7)
[2023-05-27] MEDS: sodium chloride 0.9% 1,000 ML 999 ML IV (21:40)
[2023-05-27] MEDS: morphine 4 mg/mL SDV 1 mL IVP (21:40)
[2023-05-27 21:44] VITALS: BP 130/81; PULSE 73; O2SAT 99
[2023-05-27] MEDS: HYDROcodone-acetaminophen 5-325 mg Tablet 1 TAB PO (22:41)
[2023-05-27 22:48] VITALS: PULSE 71; O2SAT 96
== END 2023-05-27 22:49 | disposition home or self-care (01) ==
PROVIDERS: Emergency Provider Emergency Medicine
DX: R10.84 Generalized abdominal pain (principal); F17.210 Nicotine dependence, cigarettes, uncomplicated
CPT/HCPCS: 36415; 76705; 80053; 81003; 83690; 85025; 96361; 96374; 99284; J2270; J7030

== ENCOUNTER 2023-05-29 10:30 | Emergency (ER) | payer OTHER, MEDICAID, SELFPAY ==
[2023-05-29 10:34] VITALS: BP 152/79; PULSE 84; RESP 16; TEMP 36.5; O2SAT 99
--- NOTE | 2023-05-29 10:58 | W.ED.DENTAL ---
HPI - Dental/Oral General: Chief complaint: Dental/Oral Stated complaint: mouth pain after tooth broke Time Seen by Provider: 05/29/23 10:46 History of Present Illness: 22-year-old male reports he has chronic dental issues with issues of tooth decay and history of previous fillings. Patient reports 2 days ago one of his right upper molars cracked even more than it already was and a filling came out. This morning while he was at work leaning over he had throbbing pain in the right upper portion of his mouth radiating up towards his right forehead and right ear. He also saw a bit of blood in what he believed to be pus. Patient has been using naproxen and clove oil for pain control. He was trying to get into a dentist today but it is a holiday. No fevers, trouble breathing, tongue swelling, swelling underneath the tongue, trouble with flexing and extending the neck, change in speech, or other red flags. Review of Systems General: Reports: 10 or more systems reviewed and unremarkable except in HPI and below Narrative: Right upper mouth pain radiating towards the right jaw and forehead. Negative for fevers, chills, rashes, arthralgias, neck pain, neck swelling, facial swelling, sinus issues, pain within the ear, trouble speaking. PFSH ED PFSH: Social History Smoking and tobacco/nicotine status: current every day tobacco/nicotine user cigarettes Alcohol intake: current Alcohol intake frequency: few times a month Physical Exam Const: COMMON NORMALS: no limitations, alert and well nourished EXAM LIMITATIONS: no altered mental status HENMT: COMMON NORMALS: normocephalic, atraumatic and external ears normal HEAD & SCALP: normocephalic and atraumatic EXTERNAL EAR: Yes external ears normal MOUTH: lip normal, tongue normal and Normal salivary glands and ducts present; no audible dysphonia and no muffled voice TEETH & GINGIVA: Yes caries and Yes poor dentition TEETH & GINGIVA IMAGES: 1. Tooth #1 partially erupted and broken. Second tooth broken/rotten with exposed pulp and probable purulence on exposed pulp. Tooth #3 rotted/broken with erythema at gingival. No abscesses. All three teeth ttp. OTHER: Teeth 1-3: broken, ttp, mild erythema gingiva, no abscesses, all are ttp, probable purulent pulpitis tooth #2. Other caries noted. Uvula, tongue, sublingual, glands all okay. Eye: COMMON NORMALS: conjunctivae normal and no scleral icterus CONJUNCTIVA: Yes conjunctivae normal Neck/C-Spine: GENERAL: Yes normal visual inspection and Yes trachea midline Resp: COMMON NORMALS: normal respiratory effort and No use of accessory muscles Neuro: COMMON NORMALS: moves all extremities, no focal motor deficits and no sensory deficits noted SENSORIUM/ORIENTATION: Yes alert SPEECH: speech normal Psych: COMMON NORMALS: mental status grossly normal, Normal thought process present, cooperative, normal affect and speech normal SPEECH: Yes normal speech THOUGHT PROCESS: Normal thought process present Skin: COMMON NORMALS: no rashes or lesions noted, turgor normal and no jaundice GENERAL SKIN EXAM: no rashes or lesions noted and turgor normal Course Vital Signs: Vital signs: Vital Signs Temperature 97.7 F 05/29/23 10:34 Pulse Rate 84 05/29/23 10:34 Respiratory Rate 16 05/29/23 10:34 Blood Pressure 152/79 05/29/23 10:34 Pulse Oximetry 99 05/29/23 10:34 Oxygen Delivery Me thod Room Air 05/29/23 10:34 MDM - Dental/Oral Medical Decision Making Periapical Abscess vs Pulpitis -Acute pain, thermal sensitivity, sensitivity to percussion, and gingival irritation at base of tooth. +dental caries -Antibiotics (clinda) and dental follow-up Pain: -patient refused dental block (afraid of needles). We'll do nsaids/tylenol for primary pain control and norco for short term severe pain relief No radiology studies performed this visit Discharge Plan Discharge Patient Disposition: Home Clinical Impression: Acute pulpitis Condition: Stable Prescriptions: New clindamycin HCl 300 mg capsule 300 mg PO BID 10 Days Qty: 20 0RF hydrocodone-acetaminophen 5-325 mg tablet 1 tab PO Q8H PRN (Reason: pain (scale score 7-10)) 5 Days Qty: 10 0RF No Action olanzapine 10 mg tablet,disintegrating 10 mg PO Q8H PRN (Reason: nausea and vomiting) Qty: 15 0RF Ativan 2 mg tablet 2 mg buccal Q6H PRN (Reason: nausea and vomiting) Qty: 15 0RF promethazine 25 mg tablet 25 mg PO TID PRN (Reason: nausea and vomiting) Qty: 20 0RF Protonix 40 mg tablet,delayed release (DR/EC) 40 mg PO DAILY Qty: 60 0RF Discharge Orders: Discharge ED (Routine); Ordered 05/29/23 Ordered By: Galileo Cottrell Discharge Diet: Advance as tolerated Discharge Activity: Resume usual activity Patient Instructions: Dental Abscess (ED), Opioid Safety, Pain Management Activity Restrictions/Additional Instructions: Take antibiotics as prescribed. They can be taken with food. You should also take a probiotic for the next 1-2 months. Take naproxen and use topical agents such as [place] for primary pain control. [place] can be used for severe pain. Follow-up with dentist in 7-10 days. Call ahead to make appointment. Return for facial swelling, fever, trouble breathing, swelling of tongue or below tongue, or other emergent symptoms. Coding Level of Care Code ED Patient Coordinator for Janie Mendoza
== END 2023-05-29 11:17 | disposition home or self-care (01) ==
PROVIDERS: Emergency Provider Emergency Medicine
DX: K04.01 Reversible pulpitis (principal); F17.210 Nicotine dependence, cigarettes, uncomplicated
CPT/HCPCS: 99283

== ENCOUNTER 2023-06-15 21:55 | Emergency (ER) | payer MEDICAID, SELFPAY ==
[2023-06-15 22:12] VITALS: BP 131/85; PULSE 86; RESP 16; TEMP 36.7; O2SAT 98; BMI 23.0
--- NOTE | 2023-06-15 23:23 | W.ED.DENTAL ---
HPI - Dental/Oral General: Chief complaint: Dental/Oral Stated complaint: Pain On Side Of Head Time Seen by Provider: 06/15/23 21:59 Source: patient Mode of arrival: ambulatory Limitations: no limitations History of Present Illness: 22-year-old male states that he has been having left lower dental pain over the last 2 to 3 days states pain is very sharp in nature rates it a 9 out of 10 states he has an appoint with dentist next week denies any fevers denies any difficulty swallowing denies any vomiting or diarrhea Associated symptoms: Denies fever(s) Review of Systems Const: Denies: fever(s), chills, body aches or change in appetite ENMT: Reports: dental pain; Denies: throat pain Card: Denies: chest pain Resp: Denies: dyspnea GI: Denies: abdominal pain, nausea, vomiting or diarrhea Musc: Denies: neck pain or back pain Skin/Breast: Denies: rash Neuro: Denies: headache(s) PFSH ED PFSH: Social History Smoking and tobacco/nicotine status: current every day tobacco/nicotine user cigarettes Alcohol intake: current Alcohol intake frequency: few times a month Physical Exam Const: COMMON NORMALS: no acute distress, patient oriented x3 and healthy appearing HENMT: COMMON NORMALS: normocephalic and atraumatic HEAD & SCALP: normocephalic and atraumatic OTHER: Poor dentition tenderness over left lower molar no abscess or trismus Eye: COMMON NORMALS: EOMs intact bilaterally Neck/C-Spine: COMMON NORMALS: full ROM and supple Chest: COMMONS NORMALS: normal inspection of the chest Resp: COMMON NORMALS: normal respiratory effort Cardio: COMMON NORMALS: regular rate, regular rhythm and No murmurs present (Cardio) RATE: regular rate RHYTHM: regular rhythm Extremity: COMMON NORMALS: normal to inspection and full ROM Neuro: COMMON NORMALS: patient oriented x3, moves all extremities and no focal motor deficits Psych: COMMON NORMALS: mental status grossly normal, Normal thought process present and cooperative THOUGHT PROCESS: Normal thought process present Skin: COMMON NORMALS: no rashes or lesions noted and no wounds GENERAL SKIN EXAM: no rashes or lesions noted Course Vital Signs: Vital signs: Vital Signs Temperature 98.1 F 06/15/23 22:12 Pulse Rate 86 06/15/23 22:12 Respiratory Rate 16 06/15/23 22:12 Blood Pressure 131/85 06/15/23 22:12 Pulse Oximetry 98 06/15/23 22:12 Oxygen Delivery Me thod Room Air 06/15/23 22:12 MDM - Dental/Oral Medical Decision Making Patient presents here with dental pain he has no signs of abscess or trismus we will prescribe him pain meds on antibiotics he is to follow-up with dentist as scheduled. Medical Records I reviewed the patient's medical records. No radiology studies performed this visit Discharge Plan Discharge Patient Disposition: Home Clinical Impression: Pain, dental Condition: Stable Prescriptions: New hydrocodone-acetaminophen 5-325 mg tablet 1 tab PO Q6H PRN (Reason: pain) Qty: 8 0RF cephalexin 500 mg capsule 500 mg PO TID 7 Days Qty: 21 0RF No Action olanzapine 10 mg tablet,disintegrating 10 mg PO Q8H PRN (Reason: nausea and vomiting) Qty: 15 0RF Ativan 2 mg tablet 2 mg buccal Q6H PRN (Reason: nausea and vomiting) Qty: 15 0RF promethazine 25 mg tablet 25 mg PO TID PRN (Reason: nausea and vomiting) Qty: 20 0RF Protonix 40 mg tablet,delayed release (DR/EC) 40 mg PO DAILY Qty: 60 0RF hydrocodone-acetaminophen 5-325 mg tablet 1 tab PO Q6H PRN (Reason: pain) Qty: 10 0RF Discharge Orders: Discharge ED (Routine); Ordered 06/15/23 Ordered By: Nathalie Reed Discharge Diet: Advance as tolerated Discharge Activity: Resume usual activity Patient Instructions: Toothache (ED) Coding Level of Care Code ED Gravure Press Set Up Operator for Janie Mendoza
[2023-06-15 23:35] VITALS: PULSE 70; RESP 14; O2SAT 98
[2023-06-15] MEDS: HYDROcodone-acetaminophen 5-325 mg Tablet 1 TAB PO (23:35)
[2023-06-15 23:38] VITALS: BP 151/82; O2SAT 99
== END 2023-06-15 23:40 | disposition home or self-care (01) ==
PROVIDERS: Emergency Provider Emergency Medicine
DX: K08.89 Other specified disorders of teeth and supporting structures (principal); Z72.0 Tobacco use
CPT/HCPCS: 99283

== ENCOUNTER 2023-07-12 09:29 | Emergency (ER) | payer MEDICAID, SELFPAY ==
[2023-07-12 09:55] VITALS: BP 146/78; PULSE 72; TEMP 36.6; O2SAT 99; BMI 23.1
--- NOTE | 2023-07-12 12:07 | W.ED.DENTAL ---
HPI - Dental/Oral General: Chief complaint: Dental/Oral Stated complaint: tooth pain Time Seen by Provider: 07/12/23 10:44 History of Present Illness: Patient presents to the ER with complaints of dental pain secondary to an impacted/broken left lower molar. Patient has been seen here a time or 2 for this but says he has a dentist appointment coming up at the end of July and a dentist told him to come here if the pain got unbearable. Patient states he is taken Tylenol and ibuprofen alternating but the pain is just too bad. Patient does state he is still has about half a round of clindamycin at home from a previous visit. Review of Systems General: Reports: 10 or more systems reviewed and unremarkable except in HPI and below PFSH ED PFSH: Social History Smoking and tobacco/nicotine status: current every day tobacco/nicotine user cigarettes Alcohol intake: current Alcohol intake frequency: few times a month Physical Exam Const: COMMON NORMALS: no acute distress, average body habitus, patient oriented x3, no limitations, healthy appearing, alert and well nourished HENMT: COMMON NORMALS: normocephalic, atraumatic, hearing grossly normal bilaterally, external ears normal, Normal external nose present, moist oral mucous membranes and oropharynx normal; dentition not normal (Left lower molar broken and impacted appearing no obvious abscess) HEAD & SCALP: normocephalic and atraumatic NOSE: Normal external nose present EXTERNAL EAR: Yes external ears normal Neck/C-Spine: COMMON NORMALS: full ROM, supple, no meningeal signs, no JVD and Thyroid normal; negative for no lymphadenopathy THYROID: Thyroid normal Chest: COMMONS NORMALS: normal inspection of the chest and normal palpation of entire chest wall Resp: COMMON NORMALS: normal respiratory effort, No retractions, No use of accessory muscles and clear to auscultation bilaterally AUSCULTATION: clear to auscultation bilaterally Cardio: COMMON NORMALS: no JVD, regular rate, regular rhythm, S1 normal heart sound present, S2 normal heart sound present, No gallops present (Cardio), No clicks present (Cardio), No murmurs present (Cardio) and No rub (Cardio) RATE: regular rate RHYTHM: regular rhythm HEART SOUNDS: S1 normal heart sound present and S2 normal heart sound present Neuro: COMMON NORMALS: patient oriented x3 SENSORIUM/ORIENTATION: Yes alert MENINGEAL SIGNS: Yes no meningeal signs Course Vital Signs: Vital signs: Vital Signs Temperature 97.9 F 07/12/23 09:55 Pulse Rate 66 07/12/23 12:24 Respiratory Rate 16 07/12/23 12:24 Blood Pressure 146/78 07/12/23 09:55 Pulse Oximetry 98 07/12/23 12:24 Oxygen Delivery Me thod Room Air 07/12/23 09:55 MDM - Dental/Oral Medical Decision Making Patient will be placed on another full round of antibiotics as well as given some tramadol to take as needed for pain. Patient should follow-up with a dentist for definitive treatment Differential Diagnosis Likely toothache and fracture of tooth; Unlikely gingival abscess, dental caries, dental abscess or aphthous ulcer Medical Records I reviewed the patient's medical records. Lab Data I reviewed the patient's lab results. All radiology interpretation(s) finalized by discharge Discharge Plan Discharge Patient Disposition: Home Clinical Impression: Fracture of tooth Condition: Stable Prescriptions: New clindamycin HCl 300 mg capsule 300 mg PO Q8H 10 Days Qty: 30 0RF tramadol 50 mg tablet 50 mg PO Q8H PRN (Reason: pain) Qty: 14 0RF No Action olanzapine 10 mg tablet,disintegrating 10 mg PO Q8H PRN (Reason: nausea and vomiting) Qty: 15 0RF Ativan 2 mg tablet 2 mg buccal Q6H PRN (Reason: nausea and vomiting) Qty: 15 0RF promethazine 25 mg tablet 25 mg PO TID PRN (Reason: nausea and vomiting) Qty: 20 0RF Protonix 40 mg tablet,delayed release (DR/EC) 40 mg PO DAILY Qty: 60 0RF hydrocodone-acetaminophen 5-325 mg tablet 1 tab PO Q6H PRN (Reason: pain) Qty: 10 0RF hydrocodone-acetaminophen 5-325 mg tablet 1 tab PO Q6H PRN (Reason: pain) Qty: 8 0RF Discharge Orders: Discharge ED (Routine); Ordered 07/12/23 Ordered By: Davi Rowe Patient Instructions: Toothache (ED), Opioid Safety, Pain Management Activity Restrictions/Additional Instructions: Take all your medicine as prescribed. Please follow-up with a dentist for definitive treatment. Please keep your appointment. You may even call them and see if they can get you in any sooner. Coding Level of Care Code ED Rag Cutting Machine Tender for Janie Mendoza
[2023-07-12 12:24] VITALS: PULSE 66; RESP 16; O2SAT 98
== END 2023-07-12 12:25 | disposition home or self-care (01) ==
PROVIDERS: Emergency Provider Emergency Medicine
DX: S02.5XXA Fracture of tooth (traumatic), initial encounter for closed fracture (principal); X58.XXXA Exposure to other specified factors, initial encounter; F17.210 Nicotine dependence, cigarettes, uncomplicated
CPT/HCPCS: 99283

== ENCOUNTER 2023-07-14 12:53 | Emergency (ER) | payer MEDICAID, SELFPAY ==
[2023-07-14 13:14] VITALS: BP 150/101; PULSE 93; RESP 17; TEMP 36.7; O2SAT 100; BMI 23.1
--- NOTE | 2023-07-14 13:21 | ED_ITS ---
HPI - Dental/Oral 2 General: Chief complaint: Dental/Oral Stated complaint: mouth pains, swelling Time Seen by Provider: 07/14/23 13:17 Source: patient Mode of arrival: ambulatory Limitations: no limitations History of Present Illness: Patient is a nice 22-year-old male presents to ED today with complaint of dental pain involving his left lower third impacted wisdom tooth. Patient states he has been having issues with the tooth for quite a while. He was recently seen in our ED and placed on clindamycin and given tramadol for pain. He states the tramadol does not seem to be controlling his discomfort at all. He does have an upcoming dentist appointment July 27 which is the soonest he could get scheduled. Patient states he is having difficulty eating and drinking secondary to sensitivity and nerve pain within the tooth. He has no difficulty swallowing. He is able to drink and tolerate soft foods such as mashed potatoes and yogurt but states he is not able to chew secondary to pain in the tooth. He states he cannot chew on the right side either as he has a fractured upper molar there. He has not noticed any facial or neck swelling. Again he is not having any difficulty swallowing or controlling secretions. Teeth map: 1. Impacted wisdom tooth Onset (ago): day(s) Duration: constant Severity: severe Severity scale (1-10): 10 Relieving factors: nothing Exacerbating factors: chewing Context: history of dental caries and poor dental care Associated symptoms: Reports no associated symptoms; Denies ear or mastoid pain, fever(s) or odynophagia Treatment prior to arrival: oral analgesic Review of Systems 2 Const: Denies: fever(s), chills, body aches, fatigue or malaise ENMT: Reports: dental pain; Denies: odynophagia, hoarseness, swelling of lips/tongue, oral sores, ear or mastoid pain, nasal discharge, nasal congestion or sinus pain Card: Denies: chest pain Resp: Denies: dyspnea GI: Denies: nausea or vomiting Musc: Denies: neck pain Neuro: Denies: headache(s) PFSH ED 2 PFSH: Social History Smoking and tobacco/nicotine status: current every day tobacco/nicotine user cigarettes Alcohol intake: current Alcohol intake frequency: few times a month Physical Exam 2 Const: COMMON NORMALS: no acute distress, average body habitus, patient oriented x3, no limitations, healthy appearing, alert and well nourished HENMT: FACE & SINUS: normal facial exam, sinuses nontender and face symmetric MOUTH: Normal oral and palatal mucosa present, lip normal and other (floor of mouth is soft/non-elevated) TEETH & GINGIVA: Yes caries, Yes poor dentition and Yes other (Widespread dental disease) TEETH & GINGIVA IMAGES: 1. Impacted wisdom tooth 2. Fractured molar THROAT: posterior oropharynx normal and tonsils normal Neck/C-Spine: GENERAL: Yes normal visual inspection, No anterior neck swelling and No submandibular swelling Neuro: COMMON NORMALS: patient oriented x3 SENSORIUM/ORIENTATION: Yes alert Course 2 Vital Signs: Vital signs: Vital Signs Temperature 98.1 F 07/14/23 13:14 Pulse Rate 93 07/14/23 13:14 Respiratory Rate 17 07/14/23 13:14 Blood Pressure 150/101 07/14/23 13:14 Pulse Oximetry 100 07/14/23 13:14 Oxygen Delivery Me thod Room Air 07/14/23 13:14 MDM - Dental/Oral Medical Decision Making I do not visualize any abscess formation. I do not have any concern for deep space abscess. Patient is able to swallow and control secretions normally. Will place him on stronger pain medications and give him some viscous lidocaine in hopes that between the two he can get some relief from his dental pain. Continue current plan to follow-up with his dentist as scheduled on July 27. Return ED precautions given. Differential Diagnosis Likely dental caries, toothache and fracture of tooth Medical Records I reviewed the patient's medical records. No radiology studies performed this visit Discharge Plan Discharge Patient Disposition: Home Clinical Impression: Toothache, Impacted third molar tooth Condition: Stable Prescriptions: New hydrocodone-acetaminophen 5-325 mg tablet 1 tab PO Q6H PRN (Reason: pain) Qty: 14 0RF Lidocaine Viscous 2 % solution 15 ml MUCOUS MEM QID Qty: 100 0RF Rx Instructions: Mix with water and swish for 60 seconds, then spit Continued clindamycin HCl 300 mg capsule 300 mg PO Q8H 10 Days Qty: 30 0RF Discontinued tramadol 50 mg tablet 50 mg PO Q8H PRN (Reason: pain) Qty: 14 0RF hydrocodone-acetaminophen 5-325 mg tablet 1 tab PO Q6H PRN (Reason: pain) Qty: 10 0RF hydrocodone-acetaminophen 5-325 mg tablet 1 tab PO Q6H PRN (Reason: pain) Qty: 8 0RF No Action olanzapine 10 mg tablet,disintegrating 10 mg PO Q8H PRN (Reason: nausea and vomiting) Qty: 15 0RF Ativan 2 mg tablet 2 mg buccal Q6H PRN (Reason: nausea and vomiting) Qty: 15 0RF promethazine 25 mg tablet 25 mg PO TID PRN (Reason: nausea and vomiting) Qty: 20 0RF Protonix 40 mg tablet,delayed release (DR/EC) 40 mg PO DAILY Qty: 60 0RF Discharge Orders: Discharge ED (Routine); Ordered 07/14/23 Ordered By: Estefany Ibarra Patient Instructions: Toothache (ED), Opioid Safety, Pain Management Coding Level of Care Code ED Insurance Office Supervisor for Janie Mendoza
== END 2023-07-14 13:38 | disposition home or self-care (01) ==
PROVIDERS: Emergency Provider Physician Assistant
DX: K08.89 Other specified disorders of teeth and supporting structures (principal); K01.1 Impacted teeth; F17.210 Nicotine dependence, cigarettes, uncomplicated
CPT/HCPCS: 99283

== ENCOUNTER 2023-07-18 15:40 | Emergency (ER) | payer MEDICAID, SELFPAY ==
[2023-07-18 15:45] VITALS: BP 132/87; PULSE 98; RESP 16; TEMP 36.5; O2SAT 100; BMI 22.4
--- NOTE | 2023-07-18 15:54 | W.ED.DENTAL ---
HPI - Dental/Oral General: Chief complaint: Dental/Oral Stated complaint: left side mouth pain Time Seen by Provider: 07/18/23 15:50 Source: patient Mode of arrival: ambulatory Limitations: no limitations History of Present Illness: Patient is a 22-year-old male who presents to ED today again with a complaint of pain related to a left lower molar. Patient has had this pain for several weeks. He was initially seen at our facility approximately a month ago and given hydrocodone and cephalexin. He was seen a few weeks later and given tramadol and clindamycin. I saw him a few days ago and prescribed him hydrocodone. He told me at that visit he had a dentist appointment scheduled for July 27. He tells me today he thinks it is August 06. He states he does not feel like any of the pain medications are helping. He is reporting pain radiating from the tooth to his left ear and head. Pain with chewing. He is swallowing and controlling secretions normally. No fevers. MD Complaint: tooth pain Teeth map: 1. impacted/decayed molar Onset (ago): week(s) Duration: constant Severity: severe Associated symptoms: Denies fever(s) or odynophagia Review of Systems Const: Denies: fever(s), chills, body aches, fatigue or malaise ENMT: Reports: dental pain; Denies: throat pain, odynophagia, nasal discharge, nasal congestion or sinus pain Card: Denies: chest pain Resp: Denies: dyspnea Musc: Denies: neck pain Neuro: Reports: headache(s) [facility] ED PFSH: Social History Smoking and tobacco/nicotine status: current every day tobacco/nicotine user cigarettes Alcohol intake: current Alcohol intake frequency: few times a month Physical Exam Const: COMMON NORMALS: no acute distress, average body habitus, patient oriented x3, no limitations, healthy appearing, alert and well nourished GENERAL APPEARANCE: cooperative ORIENTATION/CONSCIOUSNESS: Yes awake, Yes oriented to person, Yes oriented to place and Yes oriented to time HENMT: COMMON NORMALS: normocephalic, atraumatic, hearing grossly normal bilaterally, TM's normal bilaterally, moist oral mucous membranes, oropharynx normal and gingiva normal HEAD & SCALP: normal to inspection, normocephalic and atraumatic FACE & SINUS: normal facial exam and face symmetric; no edema TYMPANIC MEMBRANE: TM's normal bilaterally MOUTH: Normal oral and palatal mucosa present, lip normal and other (floor of mouth is soft/non-elevated) TEETH & GINGIVA: Yes other (impacted/decayed molars) THROAT: posterior oropharynx normal and tonsils normal Eye: GENERAL EYE: appearance normal, both eyes and all related structures Neck/C-Spine: COMMON NORMALS: no lymphadenopathy GENERAL: Yes normal visual inspection, No anterior neck swelling and No submandibular swelling Neuro: COMMON NORMALS: patient oriented x3 SENSORIUM/ORIENTATION: Yes alert, Yes oriented to person, Yes oriented to place and Yes oriented to time Course Vital Signs: Vital signs: Vital Signs Temperature 97.7 F 07/18/23 15:45 Pulse Rate 98 07/18/23 15:45 Respiratory Rate 16 07/18/23 15:45 Blood Pressure 132/87 07/18/23 15:45 Pulse Oximetry 100 07/18/23 15:45 Oxygen Delivery Me thod Room Air 07/18/23 15:45 MDM - Dental/Oral Medical Decision Making Patient's physical exam has not changed since I saw him a few days ago. At this point I told him I am not willing to continue to write him for controlled pain medications from the emergency department. He has been here 3 times already for this discomfort. He needs to follow-up with a primary care provider or dentist. I have no suspicion for a deep space abscess, Constantin's angina, or other emergent conditions at this time. Medical Records I reviewed the patient's medical records. No radiology studies performed this visit Discharge Plan Discharge Patient Disposition: Home Clinical Impression: Toothache, Impacted third molar tooth Fracture of tooth Qualifiers: Encounter type: sequela Fracture type: closed Qualified Code(s): S02.5XXS - Fracture of tooth (traumatic), sequela Condition: Stable Prescriptions: No Action olanzapine 10 mg tablet,disintegrating 10 mg PO Q8H PRN (Reason: nausea and vomiting) Qty: 15 0RF Ativan 2 mg tablet 2 mg buccal Q6H PRN (Reason: nausea and vomiting) Qty: 15 0RF promethazine 25 mg tablet 25 mg PO TID PRN (Reason: nausea and vomiting) Qty: 20 0RF Protonix 40 mg tablet,delayed release (DR/EC) 40 mg PO DAILY Qty: 60 0RF clindamycin HCl 300 mg capsule 300 mg PO Q8H 10 Days Qty: 30 0RF hydrocodone-acetaminophen 5-325 mg tablet 1 tab PO Q6H PRN (Reason: pain) Qty: 14 0RF Lidocaine Viscous 2 % solution 15 ml MUCOUS MEM QID Qty: 100 0RF Rx Instructions: Mix with water and swish for 60 seconds, then spit Discharge Orders: Discharge ED (Routine); Ordered 07/18/23 Ordered By: Estefany Ibarra Coding Level of Care Code ED Eyeglass Inspector for Janie Mendoza
[2023-07-18] MEDS: HYDROcodone-acetaminophen 7.5-325 mg Tablet 2 TAB PO (16:37)
== END 2023-07-18 16:38 | disposition home or self-care (01) ==
PROVIDERS: Emergency Provider Physician Assistant
DX: K01.1 Impacted teeth (principal); S02.5XXA Fracture of tooth (traumatic), initial encounter for closed fracture; F17.210 Nicotine dependence, cigarettes, uncomplicated; X58.XXXA Exposure to other specified factors, initial encounter
CPT/HCPCS: 99283

== ENCOUNTER 2023-10-15 22:54 | Emergency (ER) | payer MEDICAID, SELFPAY ==
[2023-10-15 22:59] VITALS: BP 117/83; PULSE 88; RESP 16; TEMP 36.6; O2SAT 100; BMI 21.8
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
[2023-10-16] MEDS: lactated ringers 1,000 ML 999 ML IV ×2 (00:07→00:19)
[2023-10-16] MEDS: HYDROcodone-acetaminophen 10-325 mg Tablet 1 TAB PO (00:07)
[2023-10-16 00:22] LABS: Basophils % 0.4 %; Eosinophils # 0.1 10^3/uL (0.0-0.8); Eosinophils % 1.2 %; Hematocrit 43.7 % (37-53); Lymphocytes # 2.9 10^3/uL (0.8-4.8); Lymphocytes % 30.5 %; Mean Corpuscular HGB Conc 34.3 g/dL (30-55); Mean Corpuscular Hemoglobin 31.8 pg (27-33); Mean Corpuscular Volume 92.6 fl (82-101); Monocytes % 10.3 %; Neutrophils # 5.42 10^3/uL (1.8-7.7); Neutrophils % 57.5 %; Nucleated Red Blood Cells % 0 %; Platelet Count 187 10^3/cmm (157-399); Red Blood Count 4.72 10^6/uL (3.85-5.65); Red Cell Distribution Width 12.6 % (12.1-15.1); White Blood Count 9.43 10^3/uL (3.29-11.43)
[2023-10-16 00:32] LABS: Anion Gap 15.1 (5-19); Blood Urea Nitrogen 18 mg/dL (6-20); Calcium 9.5 mg/dL (8.5-10.5); Carbon Dioxide 26 mmol/L (22-29); Chloride 100 mmol/L (98-107); Creatinine Clr Calc Pharmacy 128.0404; Glucose 108 mg/dL (65-115); Osmolality Calculated 286 mOsm/kg (285-295); Potassium 4.1 mmol/L (3.5-5.1); Sodium 137 mmol/L (136-145)
--- NOTE | 2023-10-16 01:29 | PC.NURSE ---
Pt sent home with 2tabs Oxycodone per Dr Romo's Order.
[2023-10-16 01:41] VITALS: PULSE 90; RESP 18; O2SAT 96
== END 2023-10-16 01:37 | disposition home or self-care (01) ==
PROVIDERS: Emergency Provider Nurse Practitioner Family
DX: L55.1 Sunburn of second degree (principal); F17.210 Nicotine dependence, cigarettes, uncomplicated
CPT/HCPCS: 80048; 85025; 96360; 99284; J7120

== ENCOUNTER 2024-03-07 18:18 | Emergency (ER) | payer MEDICAID, SELFPAY ==
[2024-03-07 18:27] VITALS: BP 136/79; PULSE 76; RESP 17; TEMP 36.7; O2SAT 99; BMI 23.1
--- NOTE | 2024-03-07 18:42 | XRR_ITS ---
PROCEDURE INFORMATION: Exam: XR Right Hand Exam date and time: 03/07/2024 6:59 PM Age: 23 years old Clinical indication: Injury or trauma; Other: Smashed; Crushing; Hand; Right; Additional info: Smashed right thumb TECHNIQUE: Imaging protocol: Radiologic exam of the right hand. Views: 3 or more views. COMPARISON: No relevant prior studies available. FINDINGS: Bones/joints: Normal mineralization and alignment. No evidence of acute fracture or dislocation. Soft tissues: The soft tissues are within normal limits. XR/XR hand RT min 3V* [id number] IMPRESSION: No evidence of acute fracture or dislocation.
[2024-03-07 19:05] VITALS: BP 148/82; PULSE 68; RESP 16; O2SAT 99
--- NOTE | 2024-03-07 19:22 | ED_ITS ---
HPI - Extremity Problem General: Chief complaint: Extremity Injury, Upper Stated complaint: right thumb injury Time Seen by Provider: 03/07/24 18:56 Source: patient Mode of arrival: ambulatory Limitations: no limitations History of Present Illness: Patient is a 23-year-old male present to the emergency department with right thumb injury prior to arrival. He states he smashed in the gipson of his truck, has had trouble moving it since due to the pain. Most of his pain reported to be at the distal thumb, he is noting some numbness here. Denying any other pain in his hand. Reporting a small laceration to his thumb as well. No other symptoms reported at this time. He has not used ice or take anything for pain at this time. Initially states he went to urgent care they referred him for an image. MD Complaint: extremity pain Location: right (Thumb) Radiation: distal Exacerbating factors: range of motion and palpation Associated symptoms: Deny chest pain, fever(s) or rash Related Data Previous Rx's Medication Instructions Recorded triamcinolone acetonide 0.1 % 1 applic topical TID #15 grams 12/13/23 topical cream amoxicillin 500 mg capsule 500 mg PO TID 7 days #21 caps 12/21/23 Allergies Allergy/AdvReac Type Severity Reaction Status Date / Time ketorolac [From Toradol] Allergy ADR-Nausea Verified 12/21/23 12:59 metoclopramide [From Reglan] Allergy ADR-Anxiety Verified 12/21/23 12:59 ondansetron [From Zofran] AdvReac Unknown Verified 12/21/23 12:59 Review of Systems General: Reports: 10 or more systems reviewed and unremarkable except in HPI and below Const: Denies: fever(s) or chills Card: Denies: chest pain Resp: Denies: dyspnea or productive cough GI: Denies: abdominal pain, nausea, vomiting or diarrhea : Denies: flank pain Musc: Reports: extremity pain and limited range of motion; Denies: neck pain, back pain, extremity swelling, joint pain, joint swelling, joint redness, joint warmth or muscle weakness Skin/Breast: Denies: rash Neuro: Reports: numbness in extremities; Denies: headache(s) or weakness in extremities PFS ED PFSH: Medical History Eczema History of kidney stones Social History Smoking and tobacco/nicotine status: current every day tobacco/nicotine user e- cigarettes E-Cigarette Details: vaporizer device and with nicotine Alcohol intake: current Alcohol intake frequency: few times a month Substance/Drug Use: never Adopted: No service: Yes branch: [employer] Current occupational exposures/hazards: Yes Physical Exam Const: COMMON NORMALS: no acute distress, patient oriented x3, no limitations, healthy appearing, alert and well nourished HENMT: COMMON NORMALS: normocephalic and atraumatic HEAD & SCALP: normocephalic and atraumatic Neck/C-Spine: COMMON NORMALS: full ROM, supple and no meningeal signs Resp: COMMON NORMALS: normal respiratory effort, No use of accessory muscles and clear to auscultation bilaterally AUSCULTATION: clear to auscultation bilaterally Cardio: COMMON NORMALS: regular rate and regular rhythm RATE: regular rate RHYTHM: regular rhythm Extremity: COMMON NORMALS: normal to inspection, full ROM, capillary refill normal, no joint enlargement and no clubbing, cyanosis or edema NARRATIVE EXTREMITY EXAM: Tenderness to palpation diffusely throughout the right thumb. Is endorsing some distal sensory changes. Cap refill normal. No other pain in his hand, specifically no scaphoid tenderness. Neuro: COMMON NORMALS: patient oriented x3, moves all extremities, no focal motor deficits and no sensory deficits noted SENSORIUM/ORIENTATION: Yes alert MENINGEAL SIGNS: Yes no meningeal signs Skin: COMMON NORMALS: no rashes or lesions noted GENERAL SKIN EXAM: no rashes or lesions noted Course Vital Signs: Vital signs: Vital Signs Temperature 98.0 F 03/07/24 18:27 Pulse Rate 67 03/07/24 20:42 Respiratory Rate 16 03/07/24 19:05 Blood Pressure 123/77 03/07/24 20:42 Pulse Oximetry 98 03/07/24 20:42 Oxygen Delivery Me thod Room Air 03/07/24 19:05 MDM - Extremity (Nontraumatic) Medical Decision Making Patient smashed his right thumb prior to arrival. Initially went to urgent care, but was sent here for imaging. X-ray was negative. Likely contusion, conservative therapies discussed. Return [facility]. Will be discharged now. Lab Data Radiology Impressions Hand X-Ray 03/07/24 18:42 IMPRESSION: No evidence of acute fracture or dislocation. All radiology interpretation(s) finalized by discharge Discharge Plan Discharge Patient Disposition: Home Clinical Impression: Contusion of right thumb Qualifiers: Encounter type: initial encounter Damage to nail status: without damage Qualified Code(s): S60.011A - Contusion of right thumb without damage to nail, initial encounter Condition: Stable Prescriptions: No Action amoxicillin 500 mg capsule 500 mg PO TID 7 Days Qty: 21 0RF triamcinolone acetonide 0.1 % cream 1 applic topical TID Qty: 15 0RF Discharge Orders: Discharge ED (Routine); Ordered 03/07/24 Ordered By: Kasi Castillo Patient Instructions: Contusion in Adults (ED) Activity Restrictions/Additional Instructions: Ice to the thumb. Rest and recovery. Take Tylenol and ibuprofen. Follow-up with primary care with any further complaints. Coding Level of Care Code ED Hotel Desk Clerk for Janie Mendoza
[2024-03-07 20:42] VITALS: BP 123/77; PULSE 67; O2SAT 98
== END 2024-03-07 20:44 | disposition home or self-care (01) ==
PROVIDERS: Emergency Provider Physician Assistant
DX: S60.011A Contusion of right thumb without damage to nail, initial encounter (principal); F17.290 Nicotine dependence, other tobacco product, uncomplicated; W23.0XXA Caught, crushed, jammed, or pinched between moving objects, initial encounter
CPT/HCPCS: 73130; 99283

== ENCOUNTER 2024-03-12 06:46 | Emergency (ER) | payer MEDICAID, SELFPAY ==
--- NOTE | 2024-03-12 06:49 | XRR_ITS ---
PROCEDURE INFORMATION: Exam: XR Left Wrist Exam date and time: 03/12/2024 7:04 AM Age: 23 years old Clinical indication: Injury or trauma; Other: Hit on table; Blunt trauma (contusions or hematomas); Wrist; Left; Prior surgery; Surgery date: 6+ months; Surgery type: Pins TECHNIQUE: Imaging protocol: Radiologic exam of the left wrist. Views: 3 or more views. COMPARISON: No relevant prior studies available. FINDINGS: Bones/joints: Normal. Soft tissues: Normal. XR/XR wrist LT min 3V* [id number] IMPRESSION: No acute findings.
[2024-03-12 06:59] VITALS: BP 157/87; PULSE 79; RESP 18; TEMP 36.8; O2SAT 99; BMI 23.1
[2024-03-12 07:02] VITALS: BP 157/87; PULSE 79; RESP 18; TEMP 36.8; O2SAT 99
--- NOTE | 2024-03-12 07:17 | XRR_ITS ---
PROCEDURE INFORMATION: Exam: XR Left Forearm Exam date and time: 03/12/2024 7:21 AM Age: 23 years old Clinical indication: Injury or trauma; Other: Hit on table; Blunt trauma (contusions or hematomas); Arm, upper; Left; Prior surgery; Surgery date: 6+ months; Surgery type: Pins; Patient HX: Pain and limited range of motion TECHNIQUE: Imaging protocol: Radiologic exam of the left forearm. Views: 2 views. COMPARISON: CR XR wrist LT min 3V* [id number] 03/12/2024 7:04 AM FINDINGS: Bones/joints: Well ossified body appreciated about the ulnar at the articulation of the elbow. Soft tissues: Normal. XR/XR forearm LT 2V [id number] IMPRESSION: 1. No acute osseous abnormality. 2. Likely sequela of prior trauma at the elbow versus secondary ossification center. Dedicated radiographs can be performed for further assessment especially if there is point tenderness.
--- NOTE | 2024-03-12 07:18 | ED_ITS ---
HPI - Extremity Problem General: Chief complaint: Extremity Injury, Upper Stated complaint: Left wrist injury Time Seen by Provider: 03/12/24 06:49 History of Present Illness: 23-year-old male presents emergency room with complaints of left wrist pain. He hit the left wrist in the area of the ulnar styloid against a chair last night. He states he has pain and discomfort in that region now. No other injury no other trauma no previous fractures no previous surgeries to that wrist. Related Data Previous Rx's Medication Instructions Recorded diclofenac sodium 75 mg 75 mg PO Q12H PRN pain #20 tabs 03/12/24 tablet,delayed release Allergies Allergy/AdvReac Type Severity Reaction Status Date / Time ketorolac [From Toradol] Allergy ADR-Nausea Verified 12/21/23 12:59 metoclopramide [From Reglan] Allergy ADR-Anxiety Verified 12/21/23 12:59 ondansetron [From Zofran] AdvReac Unknown Verified 12/21/23 12:59 Review of Systems Musc: Reports: extremity pain and joint pain PFSH ED PFSH: Medical History Eczema History of kidney stones Social History Smoking and tobacco/nicotine status: current every day tobacco/nicotine user e- cigarettes E-Cigarette Details: vaporizer device and with nicotine Alcohol intake: current Alcohol intake frequency: few times a month Substance/Drug Use: never Adopted: No service: Yes branch: [employer] Current occupational exposures/hazards: Yes Physical Exam Extremity: OTHER: Examination of the wrist no deformities. No ecchymosis no lacerations or abrasions no significant swelling. (Patient first ecchymosis over the distal radius however there is no ecchymosis present.) Radial and ulnar pulses are normal sensation present. Patient complains of pain with any palpation or movement of the fingers or wrist. Course Vital Signs: Vital signs: Vital Signs Temperature 98.3 F 03/12/24 07:02 Pulse Rate 74 03/12/24 08:33 Respiratory Rate 18 03/12/24 07:02 Blood Pressure 129/73 03/12/24 08:33 Pulse Oximetry 98 03/12/24 08:33 Oxygen Delivery Me thod Room Air 03/12/24 07:02 MDM - Extremity (Nontraumatic) Medical Decision Making X-rays reviewed. No x-ray findings on to the wrist or the forearm. Physical exam shows neurovascularly intact no significant deformity no skin irritation abrasion or laceration no sign of infection. Discharge home with anti- inflammatories ice rest if not improving follow-up with PCP. Lab Data Radiology Impressions Wrist X-Ray 03/12/24 06:49 IMPRESSION: No acute findings. Forearm X-Ray 03/12/24 07:17 IMPRESSION: 1. No acute osseous abnormality. 2. Likely sequela of prior trauma at the elbow versus secondary ossification center. Dedicated radiographs can be performed for further assessment especially if there is point tenderness. All radiology interpretation(s) finalized by discharge Discharge Plan Discharge Patient Disposition: Home Clinical Impression: Acute pain of left wrist Condition: Stable Prescriptions: New diclofenac sodium 75 mg tablet,delayed release (DR/EC) 75 mg PO Q12H PRN (Reason: pain) Qty: 20 0RF Discharge Orders: Discharge ED (Routine); Ordered 03/12/24 Ordered By: Puneet Reyes Discharge Diet: Usual diet Discharge Activity: Increase activity as tolerated Patient Instructions: Opioid Safety, Pain Management Activity Restrictions/Additional Instructions: Thank you for choosing [facility] for your healthcare needs today. It is very important that you follow up as instructed or that you return to the Emergency Department should you have concerns or if your condition changes or worsens in any way. You were seen today with complaints of left wrist pain after bumping her wrist against a piece of furniture x-rays your forearm and wrist did not show any acute fracture. Suspect your pain is due to soft tissue injury. You can use Tylenol or the anti-inflammatory you are prescribed. You can also ice the area as needed. If symptoms persist follow-up with your primary care doctor. Coding Level of Care Code ED Automatic Outsole Cutter for Janie Mendoza
[2024-03-12 08:33] VITALS: BP 129/73; PULSE 74; O2SAT 98
== END 2024-03-12 08:33 | disposition home or self-care (01) ==
PROVIDERS: Emergency Provider Family Medicine
DX: M25.532 Pain in left wrist (principal); F17.290 Nicotine dependence, other tobacco product, uncomplicated
CPT/HCPCS: 73090; 73110; 99283

== ENCOUNTER 2024-03-27 16:27 | Emergency (ER) | payer MEDICAID, SELFPAY ==
[2024-03-27 16:33] VITALS: BP 139/75; PULSE 80; RESP 16; TEMP 36.8; O2SAT 98; BMI 23.1
--- NOTE | 2024-03-27 16:47 | W.ED.DENTAL ---
HPI - Dental/Oral General: Chief complaint: Dental/Oral Stated complaint: right side tooth pain Time Seen by Provider: 03/27/24 16:30 History of Present Illness: 23-year-old male patient comes in with dental pain. Patient has poor dentition with a lot of caries and decay to his upper molars. Patient started having purulent drainage from his first molar of the upper right jaw. Patient contacted his dentist and they recommended he be started on some antibiotics so they can pull his tooth or do repair on it next week when he comes in for his appointment. Patient appears nontoxic otherwise. Related Data Previous Rx's Medication Instructions Recorded diclofenac sodium 75 mg 75 mg PO Q12H PRN pain #20 tabs 03/12/24 tablet,delayed release amoxicillin 875 mg-potassium 1 tab PO BID #20 tabs 03/27/24 clavulanate 125 mg tablet hydrocodone 5 mg-acetaminophen 325 1 tab PO Q8H PRN pain #7 tabs 03/27/24 mg tablet Allergies Allergy/AdvReac Type Severity Reaction Status Date / Time ketorolac [From Toradol] Allergy ADR-Nausea Verified 12/21/23 12:59 metoclopramide [From Reglan] Allergy ADR-Anxiety Verified 12/21/23 12:59 ondansetron [From Zofran] AdvReac Unknown Verified 12/21/23 12:59 Review of Systems General: Reports: 10 or more systems reviewed and unremarkable except in HPI and below PFSH ED PFSH: Medical History Eczema History of kidney stones Social History Smoking and tobacco/nicotine status: current every day tobacco/nicotine user e-cigarettes E-Cigarette Details: vaporizer device and with nicotine Alcohol intake: current Alcohol intake frequency: few times a month Substance/Drug Use: never Adopted: No service: Yes branch: [employer] Current occupational exposures/hazards: Yes Physical Exam Const: COMMON NORMALS: alert HENMT: COMMON NORMALS: normocephalic HEAD & SCALP: normocephalic MOUTH: Normal oral and palatal mucosa present TEETH & GINGIVA: Yes other (Poor dentition) Neck/C-Spine: COMMON NORMALS: full ROM Resp: COMMON NORMALS: normal respiratory effort Cardio: COMMON NORMALS: regular rate RATE: regular rate Back/Pelvis: COMMON NORMALS: thoracic and lumbar spine normal to inspection Neuro: SENSORIUM/ORIENTATION: Yes alert Skin: COMMON NORMALS: turgor normal GENERAL SKIN EXAM: turgor normal Course Vital Signs: Vital signs: Vital Signs Temperature 98.2 F 03/27/24 16:33 Pulse Rate 80 03/27/24 16:33 Respiratory Rate 16 03/27/24 16:33 Blood Pressure 139/75 03/27/24 16:33 Pulse Oximetry 98 03/27/24 16:33 Oxygen Delivery Me thod Room Air 03/27/24 16:33 MDM - Dental/Oral Medical Decision Making 23-year-old male patient comes in today with drainage from a decayed tooth. On exam patient has very poor dentition with multiple caries and tooth decay to his molars upper and lower. The tooth in question is his first molar of his right upper jaw that is significantly decayed with some purulent drainage from the center part of the carious tooth. Differential diagnosis includes dental abscess, dental caries, dental pain. Patient be treated with Augmentin and hydrocodone for the dental pain and dental infection. Patient reports understanding of care plan need for follow-up or return to the ER. No radiology studies performed this visit Discharge Plan Discharge Patient Disposition: Home Clinical Impression: Dental abscess, Dental caries Condition: Stable Prescriptions: New amoxicillin-pot clavulanate 875-125 mg tablet 1 tab PO BID Qty: 20 0RF hydrocodone-acetaminophen 5-325 mg tablet 1 tab PO Q8H PRN (Reason: pain) Qty: 7 0RF Rx Instructions: DX: dental pain No Action diclofenac sodium 75 mg tablet,delayed release (DR/EC) 75 mg PO Q12H PRN (Reason: pain) Qty: 20 0RF Discharge Orders: Discharge ED (Routine); Ordered 03/27/24 Ordered By: Branden Hall Discharge Diet: Usual diet Discharge Activity: Increase activity as tolerated Patient Instructions: Toothache (ED) Activity Restrictions/Additional Instructions: Take medications as directed. Follow-up with primary care for further instructions. Return to ED for new concerns. Coding Level of Care Code ED Construction Sales Manager for Janie Mendoza
[2024-03-27 17:06] VITALS: BP 142/83; PULSE 85; O2SAT 98
== END 2024-03-27 17:07 | disposition home or self-care (01) ==
PROVIDERS: Emergency Provider Nurse Practitioner Family
DX: K04.7 Periapical abscess without sinus (principal); K02.9 Dental caries, unspecified; F17.290 Nicotine dependence, other tobacco product, uncomplicated
CPT/HCPCS: 99283

== ENCOUNTER 2024-06-22 12:23 | Emergency (ER) | payer MEDICAID, SELFPAY ==
[2024-06-22 12:29] VITALS: BP 150/84; PULSE 82; RESP 17; TEMP 36.7; O2SAT 99; BMI 23.1
--- NOTE | 2024-06-22 13:03 | ED_ITS ---
HPI - Dental/Oral 2 General: Chief complaint: Dental/Oral Stated complaint: right side tooth pain Time Seen by Provider: 06/22/24 12:38 Source: patient Mode of arrival: ambulatory Limitations: no limitations History of Present Illness: Patient is a 23-year-old male presents to ED today with complaint of dental pain involving his right upper molars. Patient states he accidentally struck himself in the mouth with a metal bar while at work the other day and fractured/cracked a tooth. He is having pain and feels like the area might be abscessed as he has a foul taste in his mouth. He has not noticed any significant facial swelling. No trouble breathing or swallowing. No fevers or headache. He did reach out to his dentist and has an appointment scheduled for next . MD Complaint: tooth pain Onset (ago): day(s) Duration: constant Severity: moderate Relieving factors: nothing Exacerbating factors: chewing Context: history of dental caries and trauma (mechanism) Associated symptoms: Reports no associated symptoms; Denies ear or mastoid pain, fever(s) or odynophagia Treatment prior to arrival: oral analgesic Related Data Previous Rx's Medication Instructions Recorded clindamycin HCl 300 mg capsule 300 mg PO Q6H 7 days #28 caps 06/22/24 tramadol 50 mg tablet 50 mg PO Q6H PRN pain #10 tabs 06/22/24 Allergies Allergy/AdvReac Type Severity Reaction Status Date / Time ketorolac [From Toradol] Allergy ADR-Nausea Verified 12/21/23 12:59 metoclopramide [From Reglan] Allergy ADR-Anxiety Verified 12/21/23 12:59 ondansetron [From Zofran] AdvReac Unknown Verified 12/21/23 12:59 Review of Systems 2 Const: Denies: fever(s), chills, body aches, fatigue or malaise ENMT: Reports: dental pain; Denies: throat pain, odynophagia, ear or mastoid pain, nasal discharge, nasal congestion or sinus pain Card: Denies: chest pain Resp: Denies: dyspnea Musc: Denies: neck pain Neuro: Denies: headache(s) PFSH ED 2 PFSH: Medical History Eczema History of kidney stones Social History Smoking and tobacco/nicotine status: current every day tobacco/nicotine user e- cigarettes E-Cigarette Details: vaporizer device and with nicotine Alcohol intake: current Alcohol intake frequency: few times a month Substance/Drug Use: never Adopted: No service: Yes branch: [employer] Current occupational exposures/hazards: Yes Physical Exam 2 Const: COMMON NORMALS: no acute distress, average body habitus, patient oriented x3, no limitations, healthy appearing, alert and well nourished HENMT: COMMON NORMALS: normocephalic and atraumatic HEAD & SCALP: normal to inspection, normocephalic and atraumatic FACE & SINUS: normal facial exam and sinuses nontender; no erythema, no edema and no fluctuance MOUTH: Normal oral and palatal mucosa present and lip normal TEETH & GINGIVA: Yes caries and Yes poor dentition TEETH & GINGIVA IMAGES: 1. severe decay/cracked teeth THROAT: posterior oropharynx normal and tonsils normal Neck/C-Spine: COMMON NORMALS: no lymphadenopathy GENERAL: No anterior neck swelling and No submandibular swelling Neuro: COMMON NORMALS: patient oriented x3 SENSORIUM/ORIENTATION: Yes alert Course 2 Vital Signs: Vital signs: Vital Signs Temperature 98.0 F 06/22/24 12:29 Pulse Rate 82 06/22/24 12:29 Respiratory Rate 17 06/22/24 12:29 Blood Pressure 150/84 06/22/24 12:29 Pulse Oximetry 99 06/22/24 12:29 Oxygen Delivery Me thod Room Air 06/22/24 12:29 MDM - Dental/Oral Medical Decision Making Patient will be provided antibiotics. He is requesting pain medication. Recommend he follow-up with a dentist next as scheduled. Return to ED precautions given. Differential Diagnosis Likely dental caries, toothache, dental abscess and fracture of tooth No radiology studies performed this visit Discharge Plan Discharge Patient Disposition: Home Clinical Impression: Toothache, Dental caries Fracture of tooth Qualifiers: Encounter type: initial encounter Fracture type: closed Qualified Code(s): S 02.5XXA - Fracture of tooth (traumatic), initial encounter for closed fracture Condition: Stable Prescriptions: New clindamycin HCl 300 mg capsule 300 mg PO Q6H 7 Days Qty: 28 0RF tramadol 50 mg tablet 50 mg PO Q6H PRN (Reason: pain) Qty: 10 0RF Discontinued diclofenac sodium 75 mg tablet,delayed release (DR/EC) 75 mg PO Q12H PRN (Reason: pain) Qty: 20 0RF amoxicillin-pot clavulanate 875-125 mg tablet 1 tab PO BID Qty: 20 0RF hydrocodone-acetaminophen 5-325 mg tablet 1 tab PO Q8H PRN (Reason: pain) Qty: 7 0RF Rx Instructions: DX: dental pain Discharge Orders: Discharge ED (Routine); Ordered 06/22/24 Ordered By: Estefany Ibarra Patient Instructions: Acute Dental Trauma (ED), Toothache (ED), Opioid Safety, Pain Management, Dental Abscess Activity Restrictions/Additional Instructions: As we discussed, please follow-up with your dentist next week as scheduled. You need to return to the emergency department for severe facial swelling, headache, fevers, trouble breathing or swallowing, or any other concerns you may have. Coding Level of Care Code ED Contract Graphic Designer for Janie Mendoza
[2024-06-22 13:11] VITALS: BP 141/83; PULSE 112; O2SAT 98
== END 2024-06-22 13:12 | disposition home or self-care (01) ==
PROVIDERS: Emergency Provider Physician Assistant
DX: S02.5XXA Fracture of tooth (traumatic), initial encounter for closed fracture (principal); K02.9 Dental caries, unspecified; X58.XXXA Exposure to other specified factors, initial encounter; F17.290 Nicotine dependence, other tobacco product, uncomplicated
CPT/HCPCS: 99283

== ENCOUNTER 2024-08-22 06:53 | Emergency (ER) | payer MEDICAID, SELFPAY ==
[2024-08-22 06:59] VITALS: BP 168/84; PULSE 85; RESP 16; TEMP 37.1; O2SAT 97; BMI 25.0
--- NOTE | 2024-08-22 07:07 | XR_ITS ---
WS: [id number] Exam: XR ankle LT min 3V* [id number] Date/Time of Exam: 08/22/2024 7:12 AM Reason For Exam: trauma Findings: Multiple views of the ankle reveal no fracture or displacements of bone. No soft tissue swelling is present. There are no periosteal reactions noted. The talus and calcaneus are in adequate position. The joint space is smooth and equidistant. XR/XR ankle LT min 3V* [id number] IMPRESSION: Negative LEFT ankle.
--- NOTE | 2024-08-22 07:26 | W.ED.EXTPRO ---
HPI - Extremity Problem General: Chief complaint: Extremity Injury, Lower Stated complaint: left ankle pain Time Seen by Provider: 08/22/24 07:01 History of Present Illness: 23-year-old male presents emergency room complaining of left ankle pain he had an inversion injury of the ankle and he was walking on the yard stepped in a hole his lateral pain anterior to the lateral malleolus of the left ankle. No other injuries Associated symptoms: Deny chest pain, fever(s) or rash Related Data Home Medications ?Medication ?Instructions ?Recorded ?Confirmed acetaminophen 500 mg tablet 1,000 mg PO Q6H PRN Pain 08/22/24 08/22/24 (Tylenol Extra Strength) ibuprofen 200 mg tablet (Advil) 400 mg PO Q6H PRN Pain 08/22/24 08/22/24 Previous Rx's ?Medication ?Instructions ?Recorded diclofenac sodium 75 mg 75 mg PO Q12H PRN pain #20 tabs 08/22/24 tablet,delayed release Allergies Allergy/AdvReac Type Severity Reaction Status Date / Time ketorolac (From Toradol) Allergy ADR-Nausea Verified 06/25/24 10:09 metoclopramide (From Reglan) Allergy ADR-Anxiety Verified 06/25/24 10:09 ondansetron (From Zofran) AdvReac Unknown Verified 06/25/24 10:09 Review of Systems Const: Denies: fever(s) or chills Card: Denies: chest pain Resp: Denies: dyspnea GI: Denies: abdominal pain : Denies: dysuria, urinary frequency or urinary urgency Musc: Reports: joint pain Skin/Breast: Denies: rash PFSH ED PFSH: Medical History No pertinent past medical history neghx: htn, dm, thyroid, dvt/pe PCP: Urgent Care Eczema History of kidney stones Surgical History No pertinent past surgical history Family History Grandmother Diabetes Heart disease Hypertension Thyroid disease Father Hypertension Grandfather Hypertension Denies family history of Colon cancer Ovarian cancer Prostate cancer Hyperlipidemia Breast cancer Uterine cancer Stroke Social History Smoking and tobacco/nicotine status: current every day tobacco/nicotine user e-cigarettes E-Cigarette Details: vaporizer device and with nicotine Alcohol intake: current Alcohol intake frequency: few times a month Substance/Drug Use: current Substance/Drug use frequency: few times a week Adopted: No service: Yes branch: [employer] Current occupational exposures/hazards: Yes Physical Exam Extremity: OTHER: Examination of the left ankle mild swelling laterally discomfort with palpation anterior to the lateral malleolus. No bruising no obvious deformity. Minimal swelling. ightbearing using crutches. Have him follow-up with podiatry. Course Vital Signs: Vital signs: Vital Signs Temperature 98.8 F 08/22/24 06:59 Pulse Rate 85 08/22/24 06:59 Respiratory Rate 16 08/22/24 06:59 Blood Pressure 168/84 08/22/24 06:59 Pulse Oximetry 97 08/22/24 06:59 Oxygen Delivery Me thod Room Air 08/22/24 06:59 MDM - Extremity (Nontraumatic) Medical Decision Making X-rays not show any acute fracture. Patient states unable to bear weight. Will place patient in a posterior splint make nonwe Lab Data Radiology Impressions Ankle X-Ray 08/22/24 07:07 IMPRESSION: Negative LEFT ankle. All radiology interpretation(s) finalized by discharge Discharge Plan Discharge Patient Disposition: Home Clinical Impression: Ankle sprain and strain Condition: Stable Prescriptions: New diclofenac sodium 75 mg tablet,delayed release (DR/EC) 75 mg PO Q12H PRN (Reason: pain) Qty: 20 0RF No Action acetaminophen [Tylenol Extra Strength] 500 mg Tablet 1,000 mg PO Q6H PRN (Reason: Pain) ibuprofen [Advil] 200 mg Tablet 400 mg PO Q6H PRN (Reason: Pain) Discharge Orders: Discharge ED (Routine); Ordered 08/22/24 Ordered By: Puneet Reyes Discharge Diet: Usual diet Discharge Activity: Limit activity as instructed Patient Instructions: Ankle Sprain (ED), Opioid Safety, Pain Management Activity Restrictions/Additional Instructions: Thank you for choosing [facility] for your healthcare needs today. It is very important that you follow up as instructed or that you return to the Emergency Department should you have concerns or if your condition changes or worsens in any way. You were seen in the emergency room with complaint of left ankle pain after an inversion like injury. X-ray did not show any acute fractures. This he would reported you are not able to bear weight will place in a posterior splint and follow-up with podiatry use crutches. 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
[2024-08-22] MEDS: diclofenac 75 mg DR Tablet PO (08:29)
--- NOTE | 2024-08-22 14:11 | DCPLANNER ---
messaged podiatry for er f/u
== END 2024-08-22 09:06 | disposition home or self-care (01) ==
PROVIDERS: Emergency Provider Family Medicine
DX: S93.402A Sprain of unspecified ligament of left ankle, initial encounter (principal); F17.290 Nicotine dependence, other tobacco product, uncomplicated; X58.XXXA Exposure to other specified factors, initial encounter
CPT/HCPCS: 29515; 73610; 99283; E0114; J9999

== ENCOUNTER 2025-04-14 00:02 | Emergency (ER) | payer SELFPAY ==
[2025-04-14 00:05] VITALS: BP 155/93; PULSE 106; RESP 18; TEMP 36.7; O2SAT 96; BMI 26.4
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
--- OUTSIDE RECORDS SUMMARY | 2025-04-14 00:06 | XMS_ITS | Clinical Summary ---
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 Role Phone Unavailable Primary Care Provider Unavailabl e Allergies Active Allergy Reactions Criticality Noted Date Comments Diclofenac Itching Low 07/31/2023 Ketorolac Anxiety Low 03/08/2023 Metoclopramide Hcl Anxiety Low 07/18/2023 Ondansetron Hcl Nausea and Vomiting Low 03/08/2023 Medications No known medications Active Problems Problem Noted Date Diagnosed Date Allergic reaction to nonster oidal anti-inflammatory drug (NSAID) 07/31/2023 Dental abscess 03/08/2023 Social History Tobacco Use Types Packs/Day Years Used Date Smoking Tobacco: Every Day Cigarettes Tobacco Cessation:Ready to Q uit: Not Asked; Counseling Given: Not Answered Alcohol Use Standard Drinks/Week Comments Not Currently 0 (1 standard drink = 0.6 oz pur e alcohol) Feeling Safe Answer Date Recorded Are you in a relationship wi th someone who hurts you emotionally and/or physically? No 07/18/2023 Sex and Gender Information Value Date Recorded Sex Assigned at Not on file Legal Sex Male 8:23 AM CDT Gender Identity Not on file Sexual Orientation Not on file Last Filed Vital Signs Vital Sign Reading Time Taken Comments Blood Pressure 144/93 07/18/2023 7:15 PM [facility] CALL CENTER REPRESENTATIVE Pulse 76 07/18/2023 7:15 PM [facility] CALL CENTER REPRESENTATIVE Temperature 36.6 C (97.8 F) 07/18/2023 5:39 PM [facility] CALL CENTER REPRESENTATIVE Respiratory Rate 20 07/18/2023 5:39 PM [facility] CALL CENTER REPRESENTATIVE Oxygen Saturation 99% 07/18/2023 7:15 PM [facility] C[facility] REPRESENTATIVE Inhaled Oxygen Concentration - - Weight 81.1 kg (178 lb 14.4 oz) 07/18/2023 5:39 PM [facility] CALL CENTER REPRESENTATIVE Height 188 cm (6' 2 ) 07/18/2023 5:39 PM [facility] CALL CENTER REPRESENTATIVE Body Mass Index 22.97 07/18/2023 5:39 PM [facility] CALL CENTER REPRESENTATIVE Plan of Treatment Health Maintenance Due Date Last Done Comments HPV VACCINES (1 - Male 3-dose series) 2013 HEPATITIS B VACCINES (2 of 3 - 19+ 3-dose series) 12/201710/06/2017 INFLUENZA VACCINE (#1) 2024 10/06/2017 DTAP/TDAP/TD VACCINES (2 - Td or Tdap) 10/07/[address] [place] [address] [place] [id number]
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
[2025-04-14] MEDS: HYDROmorphone 0.5 MG/0.5 ML INJ 1 MG IM (01:21)
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
[2025-04-14] MEDS: tranexamic acid 1,000 mg/10mL SDV 1000 MG IRRIGATION (02:15)
[2025-04-14] MEDS: gelatin 12-7 mm Sponge 1 EACH TOPICAL ×2 (02:15→02:17)
[2025-04-14 02:20] VITALS: RESP 17; O2SAT 96
[2025-04-14] MEDS: oxyCODONE-APAP 5-325 mg Tablet 2 TAB PO (02:20)
== END 2025-04-14 03:30 | disposition home or self-care (01) ==
PROVIDERS: Emergency Provider Emergency Medicine
DX: S02.2XXA Fracture of nasal bones, initial encounter for closed fracture (principal); F17.290 Nicotine dependence, other tobacco product, uncomplicated; Y04.2XXA Assault by strike against or bumped into by another person, initial encounter
CPT/HCPCS: 70486; 96372; 99284; J1171; J9999

== ENCOUNTER 2025-04-14 04:05 | Emergency (ER) | payer SELFPAY ==
[2025-04-14 04:07] VITALS: BP 159/94; PULSE 97; RESP 18; TEMP 36.7; O2SAT 96; BMI 26.4
[2025-04-14 04:39] LABS: Hematocrit 43.7 % (37-53); Hemoglobin 15.20 g/dL (11.27-16.99); Mean Corpuscular HGB Conc 34.8 g/dL (30-55); Mean Corpuscular Hemoglobin 32.0 pg (27-33); Mean Corpuscular Volume 92.0 fl (82-101); Nucleated Red Blood Cells % 0 %; Platelet Count 243 10^3/cmm (157-399); Red Blood Count 4.75 10^6/uL (3.85-5.65); White Blood Count 13.20 10^3/uL (3.29-11.43)
[2025-04-14 04:44] VITALS: RESP 18; O2SAT 100
[2025-04-14] MEDS: haloperidol inj 5 mg/mL INJ 1 mL IVP (04:44)
[2025-04-14] MEDS: diphenhydrAMINE 50 mg/mL SDV 1mL IVP (04:44)
[2025-04-14] MEDS: morphine 4 mg/mL SDV 1 mL IVP (04:44)
[2025-04-14 04:53] LABS: INR 0.93 (0.8-1.2); Partial Thromboplastin Time 23.8 SECONDS (23.9-36.7); Prothrombin Time 13.10 SECONDS (12.1-14.9)
[2025-04-14 04:59] LABS: Alanine Aminotransferase 41 U/L (0-41); Albumin Level 5.0 g/dL (3.5-5.2); Alkaline Phosphatase 101 U/L (40-130); Anion Gap 20.7 (5-19); Aspartate Amino Transferase 37 U/L (0-40); Blood Urea Nitrogen 19 mg/dL (6-20); Calcium 9.1 mg/dL (8.5-10.5); Carbon Dioxide 19 mmol/L (22-29); Chloride 103 mmol/L (98-107); Globulin 3.3 g/dL (1.3-4.6); Glucose 107 mg/dL (65-115); Osmolality Calculated 291 mOsm/kg (285-295); Potassium 3.7 mmol/L (3.5-5.1); Sodium 139 mmol/L (136-145); Total Protein 8.3 g/dL (6.6-8.7)
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
== END 2025-04-14 05:49 | disposition home or self-care (01) ==
PROVIDERS: Emergency Provider Emergency Medicine
DX: S02.2XXD Fracture of nasal bones, subsequent encounter for fracture with routine healing (principal); F17.290 Nicotine dependence, other tobacco product, uncomplicated; Y04.2XXD Assault by strike against or bumped into by another person, subsequent encounter
CPT/HCPCS: 80053; 85025; 85610; 85730; 96361; 96374; 96375; 99284; J1200; J1630; J2270; J7030; J9999

== ENCOUNTER 2025-04-15 19:45 | Emergency (ER) | payer SELFPAY ==
[2025-04-15 20:32] VITALS: BP 138/80; PULSE 62; RESP 15; TEMP 36.6; O2SAT 99; BMI 26.9
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
[2025-04-15 21:41] VITALS: BP 159/84; O2SAT 99
[2025-04-15] MEDS: HYDROmorphone 0.5 MG/0.5 ML INJ IM (22:56)
--- OUTSIDE RECORDS SUMMARY | 2025-04-16 05:22 | XMS_ITS | Data Portability ---
Author Organization [facility], [facility] Address [address] [place] [address] Assessment No assessment recorded. Plan of Treatment Reminders Order Date Submit Date Provider Last Modified By Organization Details Last Modified Time Details Appointments None recorded. Lab respiratory pathogens DNA and RNA panel, PCR, nasopharynx 2024 025 [facility] ([facility]), [address] [place], [address], 11:23:32 Referral None recorded. Procedures None recorded. Surgeries None recorded. Imaging None recorded. Medication Orders amoxicillin 875 mg-potassiu m clavulanate 125 mg tablet 2024 025 [facility], [address], [place], [address], 05:01:19 Patient TargetsNo targets recorded. Patient InstructionsNo instructions recorded. Reason for Referral None Reported. Results Created Date Observation Date Name Description Value Unit Range Abnormal Flag Note LastModifiedBy Organization Detail LastModifiedTime 02/01/2001/31/2025 respi rator y patho gens DNA and RNA panel , PCR, nasop haryn x Covid negati ve Not Available [facility] ([facility]) [address] [place], [address], 01/31/2025 10:57:30 02/01/2001/31/2025 respi rator y patho gens DNA and RNA panel , PCR, nasop haryn x Rhinovirus negati ve Not Available [facility] ([facility]) [address] [place], [address], 01/31/2025 10:57:30 02/01/20 25 01/31/2025 respi rator y patho gens DNA and RNA panel , PCR, nasop haryn x Influenza A negati ve Not Available [facility] ([facility]) [address] [place], [address], 01/31/2025 10:57:30 02/01/20 25 01/31/2025 respi rator y patho gens DNA and RNA panel , PCR, nasop haryn x Influenza B negati ve Not Available [facility] ([facility]) [address] [place] [address], [address], 01/31/2025 10:57:30 02/01/20 25 01/31/2025 respi rator y patho gens DNA and RNA panel , PCR, nasop haryn x RSV negati ve Not Available [facility] ([facility]) [address] [place] [address], [address], 01/31/2025 10:57:30 Result Notes None recorded. Problems No Known Problems Procedures Surgical History Date Name Laterality Status Provider Name and Address Organization Details Recorded Time operative procedure on wrist completed [facility] 01/31/2025 10:55:23 Imaging Results None recorded. Procedure Notes None recorded. Medical Equipment None Reported. Allergies Allergen ID Allergen Name Allergen Category Reaction Reaction Severity Criticality Documentation Date Start Date Code Code System Note Provider Name and Address Organization Details Recorded Time 77347 Zofran medicatio n Not available Not available Not available 01/31/[address] [facility] 10:53:21 62178 ibuprofen medicatio n Not available Not available Not available 01/31/2025 5640 RxNorm [facility]al [facility] 10:53:27 Medications Name Sig Start Date [...] Last Updated DateTime 187.96 cm 25.9 kg/m2 08292.1 7 g 17 /min 98 % 98 % 71 /min 98 [degF] 146/90 mm[Hg] CARLOSTal POWERS [facility] 10:53:03 Social History Question Answer Notes LastModified by Radius App Details LastModified Time Tobacco Smoking Status Current Every Day Smoker CARLOS GIOSOHAIL veronica [facility] 01/31/2025 10:54:54 What Was The Date Of Your Most Recent Tobacco Screening? 01/31/2025 [email or web address] Information not available 01/31/2025 Sex: Unknown Functional Status Question Answer Note LastModified by Radius App Details LastModified Time Do you or have you ever used any other forms of tobacco or nicotine? Yes [email or web address] Information not available 01/31/2025 Do you or have you ever used e-cigarettes or vape? Current user of electronic cigarettes [email or web address] Information not available 01/31/2025 Do you or have you ever used any nicotine-free cigarettes, vape, or chewing tobacco? No [email or web address] Information not available 01/31/2025 Mental Status None recorded. Family History Relationship Description Onset Age of this Age Resolved Age Notes LastModified by Organization Details LastModified Time Father Type 2 diabetes mellitus Not available 2024 10:54:11 Father Kidney disease Not available 2024 10:54:23 Medical History No medical history recorded. Past Encounters Encounter ID Performer Location Encounter Start Date Encounter Closed Date Diagnosis/Indication Diagnosis SNOMED-CT Code Diagnosis ICD10 Code Diagnosis IMO Codes Diagnosis Note [id number] BARB WILSON [facility] ([facility]) [address] [place] [address] 01/31/2025 10:44:32 02/03/2025 16:46:11 Nasal congestion 43354813 R09.81 68064 Acute pansinusitis 54155 02 J01.40 [id number] Discussed use of antibiotic . Take with [...] Sanches Member ID Guarantor Name 01/31/2025 1 [facility] (MEDICAID REPLACEMENT - HMO) [facility] Luis Antonio Goodson [id number] Luis Antonio Goodson Notes Date Note Type Note Provider Name and Address Organization Details Recorded Time 01/31/2025 text/html ROS as noted in the HPI walk-in Patient c/o sinus drainage and sinus pressure. Trouble breathing, especially when he's sleeping. He's been using nasal spray and OTC sinus and cold medication. BARB WILSON [address] [place], [address], [facility] [place] [facility] 02/01/2025 10:08:55
--- OUTSIDE RECORDS SUMMARY | 2025-04-16 05:22 | XMS_ITS | Clinical Summary ---
Author Organization Yarel[facility] Address [address] [place] [address] Phone Care Team Providers Care Media Strategist Name Role Phone Unavailable Primary Care Provider [...] Comments Blood Pressure 144/93 07/18/2023 7:15 PM INSIDE CHANNEL ACCOUNT MANAGER Pulse 76 07/18/2023 7:15 PM INSIDE CHANNEL ACCOUNT MANAGER Temperature 36.6 C (97.8 F) 07/18/2023 5:39 PM INSIDE CHANNEL ACCOUNT MANAGER Respiratory Rate 20 07/18/2023 5:39 PM INSIDE CHANNEL ACCOUNT MANAGER Oxygen Saturation 99% 07/18/2023 7:15 PM INSIDE CHANNEL ACCOUNT MANAGER Inhaled Oxygen Concentration - - Weight 81.1 kg (178 lb 14.4 oz) 07/18/2023 5:39 PM INSIDE CHANNEL ACCOUNT MANAGER Height 188 cm (6' 2 ) 07/18/2023 5:39 PM INSIDE CHANNEL ACCOUNT MANAGER Body Mass Index 22.97 07/18/2023 5:39 PM INSIDE CHANNEL ACCOUNT MANAGER Plan of Treatment Health Maintenance Due Date Last Done Comments HPV VACCINES (1 - Male 3-dose series) 2013 HEPATITIS B VACCINES (2 of 3 - 19+ 3-dose series) 12/201710/06/2017 INFLUENZA VACCINE (#1) 2024 10/06/2017 DTAP/TDAP/TD VACCINES (2 - Td or Tdap) 10/07/[address] [place] [phone]
== END 2025-04-15 23:09 | disposition home or self-care (01) ==
PROVIDERS: Emergency Provider Physician Assistant
DX: S02.2XXD Fracture of nasal bones, subsequent encounter for fracture with routine healing (principal); F17.290 Nicotine dependence, other tobacco product, uncomplicated; Y04.2XXD Assault by strike against or bumped into by another person, subsequent encounter
CPT/HCPCS: 96372; 99284; J1171; J9999

== ENCOUNTER 2025-04-16 09:01 | Emergency (ER) | payer SELFPAY ==
[2025-04-16 09:06] VITALS: BP 160/94; PULSE 92; RESP 16; TEMP 36.6; O2SAT 100; BMI 26.9
[2025-04-16] MEDS: tranexamic acid 1,000 MG/100 ML PREMIX 600 MG IV (09:13)
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
[2025-04-16] MEDS: HYDROcodone-acetaminophen 5-325 mg Tablet 1 TAB PO (09:50)
[2025-04-16 10:41] VITALS: BP 132/80; PULSE 63; O2SAT 96
== END 2025-04-16 10:43 | disposition home or self-care (01) ==
PROVIDERS: Emergency Provider Emergency Medicine
DX: R04.0 Epistaxis (principal); F17.290 Nicotine dependence, other tobacco product, uncomplicated
CPT/HCPCS: 96365; 99284; J9999

== ENCOUNTER 2025-04-16 15:46 | Emergency (ER) | payer SELFPAY ==
[2025-04-16] VITALS (8 sets, daily range): BP systolic 157–182; BP diastolic 91–111; PULSE 77–130; RESP 18–20; TEMP 36.8; O2SAT 95–100; BMI 26.9
[2025-04-16 17:48] LABS: Hematocrit 38.2 % (37-53); Hemoglobin 13.30 g/dL (11.27-16.99); Mean Corpuscular HGB Conc 34.8 g/dL (30-55); Mean Corpuscular Hemoglobin 32.4 pg (27-33); Mean Corpuscular Volume 92.9 fl (82-101); Nucleated Red Blood Cells % 0 %; Platelet Count 230 10^3/cmm (157-399); Red Blood Count 4.11 10^6/uL (3.85-5.65); White Blood Count 11.31 10^3/uL (3.29-11.43)
[2025-04-16] MEDS: HYDROcodone-acetaminophen 7.5-325 mg Tablet 1 TAB PO (18:11)
[2025-04-16] MEDS: tranexamic acid 1,000 MG/100 ML PREMIX 600 MG IV (18:55)
[2025-04-16] MEDS: LORazepam 2 mg/mL INJ 1 mL IVP (19:03)
[2025-04-16] MEDS: fentaNYL 50 mcg/mL INJ 2mL IVP ×2 (19:03→20:39)
--- NOTE | 2025-04-16 19:21 | PC.NURSE ---
Pt in room with , pt states I'm going to . I've lost so much blood. I'm going to fucking . Pt in room states He needs transferred out now, we have been here so many times and you guys aren't doing shit! I want Dr. Reyes number now, I want admins number now because this is ridiculous, he is getting worse. Pt then states I need air evac out now. Pt bleeding has slowed down. Pt currently has [address] Nurse tech got provider who gave pt an update in room. Pt has call light within reach, pt is on VS monitor and color television console monitor.
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
== END 2025-04-16 20:47 | disposition home or self-care (01) ==
PROVIDERS: Emergency Provider Physician Assistant
DX: R04.0 Epistaxis (principal); F41.9 Anxiety disorder, unspecified; S02.2XXD Fracture of nasal bones, subsequent encounter for fracture with routine healing; X58.XXXD Exposure to other specified factors, subsequent encounter
CPT/HCPCS: 30901; 85025; 96365; 96375; 96376; 99284; J0780; J2060; J3010; J9999

== ENCOUNTER 2025-04-19 00:20 | Emergency (ER) | payer MEDICAID, SELFPAY ==
[2025-04-19 00:22] VITALS: BP 148/80; PULSE 102; RESP 16; TEMP 36.5; O2SAT 100; BMI 25.7
--- OUTSIDE RECORDS SUMMARY | 2025-04-19 00:26 | XMS_ITS | Continuity of Care Document ---
Author Organization RYAN [facility] Royce Mathur, [facility] ([facility]) Address [address] [place] [address] Assessment No assessment recorded. Plan of Treatment Reminders Order Date Submit Date Provider Last Modified By Organization Details Last Modified Time Details Appointments None recorded. Lab respiratory pathogens DNA and RNA panel, PCR, nasopharynx 2024 025 [facility] ([facility]), [address] [place], [address], 11:23:32 Referral None recorded. Procedures None recorded. Surgeries None recorded. Imaging None recorded. Medication Orders amoxicillin 875 mg-potassiu m clavulanate 125 mg tablet 2024 025 [facility], [address], [place], [address], 05:01:19 Patient TargetsNo targets recorded. Patient InstructionsNo instructions recorded. Reason for Referral None Reported. Results Created Date Observation Date Name Description Value Unit Range Abnormal Flag Note LastModifiedBy Organization Detail LastModifiedTime 02/01/2001/31/2025 respi rator y patho gens DNA and RNA panel , PCR, nasop haryn x Covid negati ve Not Available [facility] ([facility]) [address] [place], [address], 01/31/2025 10:57:30 02/01/202025 respi rator y patho gens DNA and RNA panel , PCR, nasop haryn x Rhinovirus negati ve Not Available [facility] ([facility]) [address] [place], [address], 01/31/2025 10:57:30 02/01/20 25 01/31/2025 respi rator y patho gens DNA and RNA panel , PCR, nasop haryn x Influenza A negati ve Not Available [facility] ([facility]) [address] [place], [address], 01/31/2025 10:57:30 02/01/20 25 01/31/2025 respi rator y patho gens DNA and RNA panel , PCR, nasop haryn x Influenza B negati ve Not Available [facility] ([facility]) [address] [place], [address], 01/31/2025 10:57:30 02/01/20 25 01/31/2025 respi rator y patho gens DNA and RNA panel , PCR, nasop haryn x RSV negati ve Not Available [facility] ([facility]) [address] [place], [address], 01/31/2025 10:57:30 Result Notes None recorded. Problems No Known Problems Procedures Surgical History Date Name Laterality Status Provider Name and Address Organization Details Recorded Time operative procedure on wrist completed CARLOS POWERS [facility], L.LEfrenCEfren 01/31/2025 10:55:23 Imaging Results None recorded. Procedure Notes None recorded. Medical Equipment None Reported. Allergies Allergen ID Allergen Name Allergen Category Reaction Reaction Severity Criticality Documentation Date Start Date Code Code System Note Provider Name and Address Organization Details Recorded Time 49912 Zofran medicatio n Not available Not available Not available 01/31/2025 66357 RxNorm CARLOS veronica [facility], L.L.CEfren 10:53:21 52223 ibuprofen medicatio n Not available Not available Not available 01/31/2025 5640 RxNorm CARLOS veronica [facility], L.LEfrenCEfren 10:53:27 Medications Name Sig Start Date Stop [...] (BMI) Body weight Respiratory rate Oxygen saturation Heart rate Body temperature Systolic And Diastolic Provider Name and Address Organization Details Last Updated DateTime 187.96 cm 25.9 kg/m2 89186.1 7 g 17 /min 98 % 71 /min 98 [degF] 146/90 mm[Hg] CARLOS POWERS [facility], L.L.CEfren 10:53:03 Social History Question Answer Notes LastModified by [employer] Details LastModified Time Tobacco Smoking Status Current Every Day Smoker CARLOS veronica [facility], L.L.CEfren 01/31/2025 10:54:54 What Was The Date Of Your Most Recent Tobacco Screening? 01/31/2025 [email or web address] Information not available 01/31/2025 Sex: Unknown Functional Status Question Answer Note LastModified by Organizat [employer] Details LastModified Time Do you or have you ever used any other forms of tobacco or nicotine? Yes Information not available 01/31/2025 Do you or have you ever used e-cigarettes or vape? Current user of electronic cigarettes [email or web address] Information not available 01/31/2025 Do you or have you ever used any nicotine-free cigarettes, vape, or chewing tobacco? No [email or web address] Information not available 01/31/2025 Mental Status None recorded. Family History Relationship Description Onset Age of this Age Resolved Age Notes LastModified by Organization Details LastModified Time Father Type 2 diabetes mellitus [email or web address] Not available 2024 10:54:11 Father Kidney disease [email or web address] Not available 2024 10:54:23 Medical History No medical history recorded. Past Encounters Encounter ID Performer Location Encounter Start Date Encounter Closed Date Diagnosis/Indication Diagnosis SNOMED-CT Code Diagnosis ICD10 Code Diagnosis IMO Codes Diagnosis Note [id number] BARB WILSON [facility] ([facility]) [address] [place] [address] 01/31/2025 10:44:32 02/03/2025 16:46:11 Nasal congestion 75415502 R09.81 82030 Acute pansinusitis 20351 02 J01.40 17694692 Discussed use of antibiotic . Take with food.May use Keanu's nasal inserts and also apply on chest. Push oral fluids. Consider nasal saline rinses and otc decongesta nt.Use tylenol/mo ilda for ballesteros. Health Concerns Section Related Observation LastModified by Organization Detai ls LastModified Time None Recorded Concern Status LastModified by Organization Details LastModified Time None Recorded Payers Encounter Date Sequence Insurance Name Policy Number Policy Sanches Covered Member ID Sanches Member ID Guarantor Name 01/31/2025 1 [facility] (MEDICAID REPLACEMENT - HMO) VICKI Goodson [id number] Luis Antonio Goodson Notes Date Note Type Note Provider Name and Address Organization Details Recorded Time 01/31/2025 text/html ROS as noted in the HPI walk-in Patient c/o sinus drainage and sinus pressure. Trouble breathing, especially when he's sleeping. He's been using nasal spray and OTC sinus and cold medication. BARB WILSON [address] [place], [address], [facility] 02/01/2025 10:08:55
--- OUTSIDE RECORDS SUMMARY | 2025-04-19 00:26 | XMS_ITS | Clinical Summary ---
Author Organization Yarelis Lima [facility] Address [address] [facility] [address] [place] [address] Phone Care Team Providers Care Culinary Specialist Name Role Phone Unavailable Primary Care Provider [...] Comments Blood Pressure 144/93 07/18/2023 7:15 PM DIE CAST ENGINEER Pulse 76 07/18/2023 7:15 PM DIE CAST ENGINEER Temperature 36.6 C (97.8 F) 07/18/2023 5:39 PM DIE CAST ENGINEER Respiratory Rate 20 07/18/2023 5:39 PM DIE CAST ENGINEER Oxygen Saturation 99% 07/18/2023 7:15 PM DIE CAST ENGINEER Inhaled Oxygen Concentration - - Weight 81.1 kg (178 lb 14.4 oz) 07/18/2023 5:39 PM DIE CAST ENGINEER Height 188 cm (6' 2 ) 07/18/2023 5:39 PM DIE CAST ENGINEER Body Mass Index 22.97 07/18/2023 5:39 PM DIE CAST ENGINEER Plan of Treatment Health Maintenance Due Date Last Done Comments HPV VACCINES (1 - Male 3-dose series) 2013 Preventative Visit-Managed Medicaid 2017 HEPATITIS B VACCINES (2 of 3 - 19+ 3-dose series) 12/201710/06/2017 INFLUENZA VACCINE (#1) 2024 10/06/2017 DTAP/TDAP/TD VACCINES (2 - Td or Tdap) 10/07/[address] [place] [address] [place] [id number]
--- OUTSIDE RECORDS SUMMARY | 2025-04-19 00:26 | XMS_ITS | Data Portability ---
Author Organization RYAN Solano [facility], [facility] Address [address] [address] [facility] [address] [place] [address] Assessment No assessment recorded. Plan of Treatment Reminders Order Date Submit Date Provider Last Modified By Organization Details Last Modified Time Details Appointments None recorded. Lab respiratory pathogens DNA and RNA panel, PCR, nasopharynx 2024 025 [facility] ([facility]), [address] [place], [address], 11:23:32 Referral None recorded. Procedures None recorded. Surgeries None recorded. Imaging None recorded. Medication Orders amoxicillin 875 mg-potassiu m clavulanate 125 mg tablet 2024 025 [facility], [address], [place], [address], 05:01:19 Patient TargetsNo targets recorded. Patient InstructionsNo instructions recorded. Reason for Referral None Reported. Results Created Date Observation Date Name Description Value Unit Range Abnormal Flag Note LastModifiedBy Organization Detail LastModifiedTime 02/01/2001/31/2025 respi rator y patho gens DNA and RNA panel , PCR, nasop haryn x Covid negati ve Not Available [facility] ([facility]) [address] [place], [address], 01/31/2025 10:57:30 02/01/2001/31/2025 respi rator y patho gens DNA and RNA panel , PCR, nasop haryn x Rhinovirus negati ve Not Available [facility] ([facility]) [address] [place], [address], 01/31/2025 10:57:30 02/01/20 25 01/31/2025 respi rator y patho gens DNA and RNA panel , PCR, nasop haryn x Influenza A negati ve Not Available [facility] ([facility]) [address] [place], [address], 01/31/2025 10:57:30 02/01/20 25 01/31/2025 respi rator y patho gens DNA and RNA panel , PCR, nasop haryn x Influenza B negati ve Not Available [facility] ([facility]) [address] [place] [address], [address], 01/31/2025 10:57:30 02/01/20 25 01/31/2025 respi rator y patho gens DNA and RNA panel , PCR, nasop haryn x RSV negati ve Not Available [facility] ([facility]) [address] [place] [address], [address], 01/31/2025 10:57:30 Result Notes None recorded. Problems No Known Problems Procedures Surgical History Date Name Laterality Status Provider Name and Address Organization Details Recorded Time operative procedure on wrist completed [facility], L.LEfrenCEfren 01/31/2025 10:55:23 Imaging Results None recorded. Procedure Notes None recorded. Medical Equipment None Reported. Allergies Allergen ID Allergen Name Allergen Category Reaction Reaction Severity Criticality Documentation Date Start Date Code Code System Note Provider Name and Address Organization Details Recorded Time 19158 Zofran medicatio n Not available Not available Not available 01/31/2025 89867 RxNorm CARLOS veronica [facility], L.LEfrenCEfren 10:53:21 70248 ibuprofen medicatio n Not available Not available Not available 01/31/2025 5640 RxNorm CARLOS GIO veronica [facility], L.L.CEfren 10:53:27 Medications Name Sig Start Date Stop [...] Last Updated DateTime 187.96 cm 25.9 kg/m2 15270.1 7 g 17 /min 98 % 71 /min 98 [degF] 146/90 mm[Hg] CARLOS POWERS [facility] 10:53:03 Social History Question Answer Notes LastModified by [employer] Details LastModified Time Tobacco Smoking Status Current Every Day Smoker CARLOS veronica [facility], L.L.CEfren 01/31/2025 10:54:54 What Was The Date Of Your Most Recent Tobacco Screening? 01/31/2025 [email or web address] Information not available 01/31/2025 Sex: Unknown Functional Status Question Answer Note LastModified by Organizat ion Details LastModified Time Do you or have you ever used any other forms of tobacco or nicotine? Yes [email or web address] Information not available 01/31/2025 Do you or have you ever used e-cigarettes or vape? Current user of electronic cigarettes [email or web address] Information not available 01/31/2025 Do you or have you ever used any nicotine-free cigarettes, vape, or chewing tobacco? No [email or web address] Information not available 01/31/2025 Mental Status None recorded. Family History Relationship Description Onset Age of this Age Resolved Age Notes LastModified by Organization Details LastModified Time Father Type 2 diabetes mellitus [email or web address] Not available 2024 10:54:11 Father Kidney disease [email or web address] Not available 2024 10:54:23 Medical History No medical history recorded. Past Encounters Encounter ID Performer Location Encounter Start Date Encounter Closed Date Diagnosis/Indication Diagnosis SNOMED-CT Code Diagnosis ICD10 Code Diagnosis IMO Codes Diagnosis Note [id number] BARB WILSON [facility] ([facility]) [address] [place] [address] 01/31/2025 10:44:32 02/03/2025 16:46:11 Nasal congestion 73246049 R09.81 89511 Acute pansinusitis 72667 02 J01.40 [id number] Discussed use of antibiotic . Take with [...] Sanches Member ID Guarantor Name 01/31/2025 1 [facility] (MEDICAID REPLACEMENT - HMO) VICKI Goodson [id number] Luis Antonio Goodson Notes Date Note Type Note Provider Name and Address Organization Details Recorded Time 01/31/2025 text/html ROS as noted in the HPI walk-in Patient c/o sinus drainage and sinus pressure. Trouble breathing, especially when he's sleeping. He's been using nasal spray and OTC sinus and cold medication. BARB WILSON [address] [place], [address], [facility] 02/01/2025 10:08:55
[2025-04-19 00:43] VITALS: BP 157/93; PULSE 95; O2SAT 98
[2025-04-19] MEDS: oxyCODONE 5 mg IR Tab/Cap PO (01:35)
[2025-04-19 01:37] VITALS: BP 150/81; PULSE 81; O2SAT 100
[2025-04-19 02:29] VITALS: BP 163/86; PULSE 78; O2SAT 99
[2025-04-19] MEDS: lidocaine-epi 1% 20 mL INJ 10 ML INJECTION (02:31)
[2025-04-19] MEDS: tranexamic acid 1,000 mg/10mL SDV 2000 MG IRRIGATION (02:31)
[2025-04-19 02:33] VITALS: PULSE 86; O2SAT 99
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
== END 2025-04-19 02:37 | disposition home or self-care (01) ==
PROVIDERS: Emergency Provider Student in an Organized Health Care Education/Training Program
DX: R04.0 Epistaxis (principal)
CPT/HCPCS: 99283; 99291; J9999; Q0169